=== PATIENT | female | born 1960 | race Caucasian/White ===

== ENCOUNTER → 2016-09-26 | Outpatient (CLI) | payer OTHER ==
[2016-09-26 09:01] LABS: Basophils # (A) 0.1 k/uL (0-0.2); Basophils % (A) 1 %; CH 28.5; CHCM 32.5; Eosinophils # (A) 0.2 k/uL (0-0.7); Eosinophils % (A) 3 %; HCT 38.4 % (34.0-46.0); HDW 2.69; HGB 12.7 gm/dL (11.4-16.0); Luc # (Auto) 0.21; Luc % (Auto) 3; Lymphocytes # (A) 2.1 k/uL (1.0-4.8); Lymphocytes % (A) 28 %; MCH 29.2 pg (25.0-35.0); MCHC 33.1 g/dL (31.0-37.0); MCV 88.3 fL (80.0-100.0); Mean Platelet Volume 6.3; Monocytes # (A) 0.4 k/uL (0-1.0); Monocytes % (A) 5 %; Neutrophils # (A) 4.7 k/uL (1.3-7.7); Neutrophils % (A) 61 %; RBC 4.35 m/uL (3.80-5.40); RDW 13.6 % (11.5-15.5); WBC 7.7 k/uL (3.8-10.6)
[2016-09-26 09:14] LABS: ALT 25 U/L (9-52); AST 15 U/L (14-36); Alkaline Phosphatase 87 U/L (38-126); Anion Gap 10 mmol/L; Blood Urea Nitrogen 21 mg/dL (7-17); Calcium 9.4 mg/dL (8.4-10.2); Carbon Dioxide 30 mmol/L (22-30); Chloride 103 mmol/L (98-107); Cholesterol 203 mg/dL (<200); Glucose 94 mg/dL (74-99); HDL Cholesterol 54 mg/dL (40-60); Non-African American GFR(MDRD) >60 (>60 ml/min/1.73 sqM); Potassium 4.2 mmol/L (3.5-5.1); Sodium 143 mmol/L (137-145); Total Bilirubin 0.5 mg/dL (0.2-1.3); Total Protein 7.5 g/dL (6.3-8.2); Triglycerides 223 mg/dL (<150)
[2016-09-26 10:02] LABS: Hepatitis C Virus IgG Index 0.05
[2016-09-26 10:06] LABS: Hepatitis C Virus IgG Ab Negative (Negative)
[2016-09-26 11:05] LABS: Vitamin B12 357 pg/mL (239-931)
== END | disposition home or self-care (01) ==
LOC: LABWHC1 08:27
PROVIDERS: ATTEND Physician Assistant
DX: Z00.01 Encounter for general adult medical examination with abnormal findings (principal); I10 Essential (primary) hypertension; E78.2 Mixed hyperlipidemia; R53.83 Other fatigue; Z13.29 Encounter for screening for other suspected endocrine disorder
CPT/HCPCS: 36415; 80053; 80061; 82306; 82607; 84439; 84443; 85025; 86803

== ENCOUNTER 2016-10-08 09:01 | Emergency (ER) | payer OTHER ==
[2016-10-08 09:33] LABS: Basophils % (A) 1 %; CH 28.5; CHCM 32.7; Eosinophils # (A) 0.2 k/uL (0-0.7); Eosinophils % (A) 2 %; HCT 40.5 % (34.0-46.0); HDW 2.61; Luc # (Auto) 0.19; Luc % (Auto) 2; Lymphocytes # (A) 1.8 k/uL (1.0-4.8); Lymphocytes % (A) 22 %; MCH 28.3 pg (25.0-35.0); MCHC 32.2 g/dL (31.0-37.0); MCV 87.8 fL (80.0-100.0); Mean Platelet Volume 6.7; Monocytes # (A) 0.5 k/uL (0-1.0); Monocytes % (A) 6 %; Neutrophils # (A) 5.4 k/uL (1.3-7.7); Neutrophils % (A) 67 %; RBC 4.62 m/uL (3.80-5.40); RDW 13.6 % (11.5-15.5); WBC 8.1 k/uL (3.8-10.6)
[2016-10-08 09:45] LABS: ALT 20 U/L (9-52); AST 18 U/L (14-36); Alkaline Phosphatase 88 U/L (38-126); Anion Gap 10 mmol/L; Blood Urea Nitrogen 23 mg/dL (7-17); Calcium 9.4 mg/dL (8.4-10.2); Carbon Dioxide 26 mmol/L (22-30); Chloride 104 mmol/L (98-107); Glucose 105 mg/dL (74-99); Magnesium 1.8 mg/dL (1.6-2.3); Non-African American GFR(MDRD) >60 (>60 ml/min/1.73 sqM); Potassium 4.3 mmol/L (3.5-5.1); Sodium 140 mmol/L (137-145); Total Bilirubin 0.4 mg/dL (0.2-1.3); Total Protein 7.9 g/dL (6.3-8.2)
[2016-10-08 09:47] LABS: Partial Thromboplastin Time 23.4 sec (22.0-30.0); Prothrombin Time 10.3 sec (9.0-12.0)
[2016-10-08 10:00] LABS: Creatine Kinase 40 U/L (30-135)
--- NOTE | 2016-10-08 10:02 | XR ---
EXAMINATION TYPE: XR chest 2V DATE OF EXAM: 10/08/2016 9:55 AM COMPARISON: NONE INDICATION: Chest pain TECHNIQUE: 2 view chest FINDINGS: The heart size is normal. The pulmonary vasculature is normal. The lungs are clear. IMPRESSION: 1. No acute pulmonary process.
--- NOTE | 2016-10-08 10:06 | ED ---
General Adult HPI - General Chief complaint: Chest Pain Stated complaint: Chest Pain Time Seen by Provider: 10/08/16 09:11 Source: patient, EMS, RN notes reviewed, old records reviewed Mode of arrival: EMS Limitations: no limitations - History of Present Illness Initial comments: This is a 55-year-old female ER for evaluation of chest pain. Patient suffers from morbid obesity and high blood pressure. Patient was having some shortness of breath earlier today while getting ready. She states she is mildly over morbidly overweight and because of her weight has difficulty being occasionally but she also had chest pressure at this time. Patient with the [employer] who sent her to the emergency room. At this time patient has no pain. No shortness of breath states symptoms are improved. Patient states she has had heart catheterization before which has been normal. Patient denies fever cough or congestion - Related Data Home Medications Medication Instructions Recorded Confirmed Cyanocobalamin (Vitamin B-12) 5,000 mcg PO DAILY 10/08/16 10/08/16 [Vitamin B12] Lisinopril [Prinivil] 20 mg PO DAILY 10/08/16 10/08/16 Multivitamin [Multivitamins Adult 1 tab PO DAILY 10/08/16 10/08/16 Gummies] Sertraline HCl [Zoloft] 25 mg PO DAILY 10/08/16 10/08/16 Allergies Allergy/AdvReac Type Severity Reaction Status Date / Time ciprofloxacin [From Cipro] Allergy Unknown Verified 10/08/16 09:35 Penicillins Allergy Unknown Verified 10/08/16 09:35 Review of Systems ROS Statement: Those systems with pertinent positive or pertinent negative responses have been documented in the HPI. ROS Other: All systems not noted in ROS Statement are negative. Past Medical History Past Medical History: Hypertension History of Any Multi-Drug Resistant Organisms: None Reported Past Surgical History: Section, Cholecystectomy, Hernia Repair, Hysterectomy Past Psychological History: Anxiety Smoking Status: Never smoker Past Alcohol Use History: None Reported Past Drug Use History: None Reported General Exam Limitations: no limitations General appearance: alert, in no apparent distress, obese Head exam: Present: atraumatic, normocephalic, normal inspection Eye exam: Present: normal appearance, PERRL, EOMI. Absent: scleral icterus, conjunctival injection, periorbital swelling ENT exam: Present: normal exam, mucous membranes moist Neck exam: Present: normal inspection. Absent: tenderness, meningismus, lymphadenopathy Respiratory exam: Present: normal lung sounds bilaterally. Absent: respiratory distress, wheezes, rales, rhonchi, stridor Cardiovascular Exam: Present: regular rate, normal rhythm, normal heart sounds. Absent: systolic murmur, diastolic murmur, rubs, gallop, clicks GI/Abdominal exam: Present: soft, normal bowel sounds. Absent: distended, tenderness, guarding, rebound, rigid Extremities exam: Present: normal inspection, full ROM, normal capillary refill. Absent: tenderness, pedal edema, joint swelling, calf tenderness Back exam: Present: normal inspection Neurological exam: Present: alert, oriented X3, CN II-XII intact Psychiatric exam: Present: normal affect, normal mood Skin exam: Present: warm, dry, intact, normal color. Absent: rash Course Vital Signs 10/08/16 10/08/16 10/08/16 09:03 10:07 11:00 Temperature 99.1 F Pulse Rate 68 81 83 Respiratory 20 16 16 Rate Blood Pressure 145/79 136/68 135/86 O2 Sat by Pulse 98 98 96 Oximetry 10/08/16 10/08/16 10/08/16 12:00 13:25 13:40 Temperature 97.8 F 98 F Pulse Rate 73 95 72 Respiratory 16 18 16 Rate Blood Pressure 125/82 141/76 141/76 O2 Sat by Pulse 95 95 95 Oximetry EKG Findings - EKG Comments: EKG Findings:: EKG shows normal sinus rhythm rate of 73, [place] 182, QRS 76, QTC 414 Medical Decision Making - Medical Decision Making 55 female at ER for evaluation. She coming in for evaluation of chest pain from unexpressed. Patient's EtOH is negative for acute disease, Levaquin was normal. Patient states she has not seen hospital for further evaluation of chest pain, upset the [facility] to ER for evaluation in the first place - Lab Data Result diagrams: 10/08/16 09:20 10/08/16 09:20 Lab Results 10/08/16 10/08/16 10/08/16 Range/Units 09:20 09:20 09:20 WBC 8.1 (3.8-10.6) k/uL RBC 4.62 (3.80-5.40) m/uL Hgb 13.0 (11.4-16.0) gm/dL Hct 40.5 (34.0-46.0) % MCV 87.8 (80.0-100.0) fL MCH 28.3 (25.0-35.0) pg MCHC 32.2 (31.0-37.0) g/dL RDW 13.6 (11.5-15.5) % Plt Count 321 (150-450) k/uL Neutrophils % 67 % Lymphocytes % 22 % Monocytes % 6 % Eosinophils % 2 % Basophils % 1 % Neutrophils # 5.4 (1.3-7.7) k/uL Lymphocytes # 1.8 (1.0-4.8) k/uL Monocytes # 0.5 (0-1.0) k/uL Eosinophils # 0.2 (0-0.7) k/uL Basophils # 0.0 (0-0.2) k/uL PT (9.0-12.0) sec INR (<1.1) APTT (22.0-30.0) sec D-Dimer (<0.60) mg/L FEU Sodium 140 (137-145) mmol/L Potassium 4.3 (3.5-5.1) mmol/L Chloride 104 (98-107) mmol/L Carbon Dioxide 26 (22-30) mmol/L Anion Gap 10 mmol/L BUN 23 H (7-17) mg/dL Creatinine 0.83 (0.52-1.04) mg/dL Est GFR (MDRD) Af Amer >60 (>60 ml/min/1.73 sqM) Est GFR (MDRD) Non-Af >60 (>60 ml/min/1.73 sqM) Glucose 105 H (74-99) mg/dL Calcium 9.4 (8.4-10.2) mg/dL Magnesium 1.8 (1.6-2.3) mg/dL Total Bilirubin 0.4 (0.2-1.3) mg/dL AST 18 (14-36) U/L ALT 20 (9-52) U/L Alkaline Phosphatase 88 (38-126) U/L Total Creatine Kinase 40 (30-135) U/L CK-MB (CK-2) 0.9 (0.0-2.4) ng/mL CK-MB (CK-2) Rel Index 2.3 Troponin I <0.012 (0.000-0.034) ng/mL NT-Pro-B Natriuret Pep pg/mL Total Protein 7.9 (6.3-8.2) g/dL Albumin 3.9 (3.5-5.0) g/dL Lipase 103 (23-300) U/L 10/08/16 10/08/16 10/08/16 Range/Units 09:20 09:20 09:20 WBC (3.8-10.6) k/uL RBC (3.80-5.40) m/uL Hgb (11.4-16.0) gm/dL Hct (34.0-46.0) % MCV (80.0-100.0) fL MCH (25.0-35.0) pg MCHC (31.0-37.0) g/dL RDW (11.5-15.5) % Plt Count (150-450) k/uL Neutrophils % % Lymphocytes % % Monocytes % % Eosinophils % % Basophils % % Neutrophils # (1.3-7.7) k/uL Lymphocytes # (1.0-4.8) k/uL Monocytes # (0-1.0) k/uL Eosinophils # (0-0.7) k/uL Basophils # (0-0.2) k/uL PT 10.3 (9.0-12.0) sec INR 1.0 (<1.1) APTT 23.4 (22.0-30.0) sec D-Dimer 0.55 (<0.60) mg/L FEU Sodium (137-145) mmol/L Potassium (3.5-5.1) mmol/L Chloride (98-107) mmol/L Carbon Dioxide (22-30) mmol/L Anion Gap mmol/L BUN (7-17) mg/dL Creatinine (0.52-1.04) mg/dL Est GFR (MDRD) Af Amer (>60 ml/min/1.73 sqM) Est GFR (MDRD) Non-Af (>60 ml/min/1.73 sqM) Glucose (74-99) mg/dL Calcium (8.4-10.2) mg/dL Magnesium (1.6-2.3) mg/dL Total Bilirubin (0.2-1.3) mg/dL AST (14-36) U/L ALT (9-52) U/L Alkaline Phosphatase (38-126) U/L Total Creatine Kinase (30-135) U/L CK-MB (CK-2) (0.0-2.4) ng/mL CK-MB (CK-2) Rel Index Troponin I (0.000-0.034) ng/mL NT-Pro-B Natriuret Pep 24 pg/mL Total Protein (6.3-8.2) g/dL Albumin (3.5-5.0) g/dL Lipase (23-300) U/L - Radiology Data Radiology results: report reviewed (chest x-ray negative for acute disease, CT negative for PE), image reviewed Disposition Clinical Impression: Chest pain Disposition: HOME SELF-CARE Condition: Good Instructions: Chest Pain (ED) Referrals: Antwan Pineda III, MD [Primary Care Provider] - 1-2 days
[2016-10-08 10:12] LABS: Creatine Kinase MB 0.9 ng/mL (0.0-2.4); Troponin I <0.012 ng/mL (0.000-0.034)
[2016-10-08] MEDS ORDERED: RX INFO: IV CONTRAST WAS GIVEN 1 EACH MISC MISCELLANE PRN (10:47)
--- NOTE | 2016-10-08 12:33 | CT ---
EXAMINATION TYPE: CT angio chest DATE OF EXAM: 10/08/2016 11:53 AM COMPARISON: Radiograph same day HISTORY: 55-year-old female SOB, chest pressure TECHNIQUE: Contiguous axial scanning of the chest performed with IV Contrast, patient injected with 6 6 mL of Omnipaque 350. Coronal/sagittal MIP reconstructions performed. CT DLP: 593.9 mGycm Automated exposure control for dose reduction was used. FINDINGS: The heart is normal size. Mild pericardial fluid is noted within the recesses. Aorta is normal caliber with conventional arch vessel branching anatomy. There is some respiratory motion at the infrahilar regions causing heterogeneity of the opacified pul monary vessels, for example, a segmental right lower lobe branch axial image 66 in segment also subse gmental left lower lobe branch, axial image 68. Within this limitation, no definite pulmonary embolus is seen. No thoracic lymphadenopathy by CT size criteria. Evaluation of the lungs shows some strandy atelectasis at the left apex, anterior left midlung, and i nferior lingula. No consolidation or pleural effusion. Mild circumferential wall thickening of the distal esophagus. Bones: Endplate spondylosis mid to lower thoracic spine. No osseous destructive process. IMPRESSION: 1. RESPIRATORY MOTION IN THE INFRAHILAR REGIONS CAUSING SOME LIMITATIONS OF THE SEGMENTAL LOWER LOBE BRANCHES. NO DEFINITE PULMONARY EMBOLISM ALLOWING FOR THIS LIMITATION. 2. NO ACUTE PULMONARY PROCESS. 3. MILD CIRCUMFERENTIAL WALL THICKENING OF THE DISTAL ESOPHAGUS COULD REPRESENT ESOPHAGITIS. CLINICAL LY CORRELATE.
[2016-10-08 13:26] VITALS: BP 141/76
[2016-10-08 13:41] VITALS: PULSE 72; RESP 16; TEMP 98
== END 2016-10-08 13:41 ==
LOC: EC 09:01
DX: R07.9 Chest pain, unspecified (principal); R06.02 Shortness of breath; E66.01 Morbid (severe) obesity due to excess calories; I10 Essential (primary) hypertension; F41.9 Anxiety disorder, unspecified; Z79.899 Other long term (current) drug therapy; Z88.0 Allergy status to penicillin; Z88.1 Allergy status to other antibiotic agents; Z95.818 Presence of other cardiac implants and grafts; Z68.43 Body mass index [BMI] 50.0-59.9, adult
CPT/HCPCS: 36415; 93005; 85379; 83880; 80053; 82550; 82553; 83690; 83735; 84484; 85025; 85610; 85730; 71020; 71275; 99285; Q9967

== ENCOUNTER → 2016-11-13 | Outpatient (CLI) | payer OTHER ==
--- NOTE | 2016-11-13 09:51 | MM ---
Reason for exam: screening (asymptomatic). Last mammogram was performed 1 year and 4 months ago. History: Patient is postmenopausal. Family history of breast cancer in maternal aunt at age 50. Took hormonal contraceptives for 2 years beginning at age 21. Physical Findings: A clinical breast exam by your physician is recommended on an annual basis and results should be correlated with mammographic findings. MG 3D Screening Mammo W/Cad Bilateral CC and MLO view(s) were taken. Prior study comparison: July 23, 2015, bilateral MG 3d screening mammo w/cad. June 12, 2011, bilateral digital screening mammo w/CAD. The breast tissue is almost entirely fat. There is chronic nodularity bilaterally. No significant changes when compared with prior studies. ASSESSMENT: Benign, BI-RAD 2 RECOMMENDATION: Routine screening mammogram of both breasts in 1 year.
== END | disposition home or self-care (01) ==
LOC: RADMAMWWP 07:15
PROVIDERS: ATTEND Obstetrics & Gynecology
DX: Z12.31 Encounter for screening mammogram for malignant neoplasm of breast (principal); Z80.3 Family history of malignant neoplasm of breast
CPT/HCPCS: 77063; G0202

== ENCOUNTER → 2017-08-12 | Outpatient (CLI) | payer OTHER ==
--- NOTE | 2017-08-12 10:34 | BD ---
EXAMINATION TYPE: MG DEXA axial skeleton. DATE OF EXAM: 08/12/2017 COMPARISON: Prior bone scan report June 12, 2002. CLINICAL HISTORY: Other disorder of bone per order. Height: 66 Weight: 254.2 FRAX RISK QUESTIONS: Alcohol (3 or more units per day): no Family History (Parent hip fracture): yes Glucocorticoids (More than 3mos): no (Ex: prednisone, prednisolone, methylprednisolone, dexamethasone, and hydrocortisone). History of Fracture in Adulthood: no Secondary Osteoporosis: 1. Type 1 Diabetes: no 2. Hyperthyroidism: no 3. Menopause before 45: no 4. Malnutrition: no 5. Chronic liver disease: no Rheumatoid Arthritis: no Current Tobacco Use: no RISK FACTORS HISTORY OF: Surgery to Spine/Hip(right/left)/Wrist (right/left): no Family History of Osteoporosis: no Active: yes Diet low in dairy products/other sources of calcium: no Postmenopausal woman: hysterectomy after age 47 Lost more than 2 inches in height since high school: no Frequent falls: no Adrenal Insufficiency: no MEDICATIONS: lisinopril, generic of zoloft, stomach meds for ulcers Additional History: EXAM MEASUREMENTS: Bone mineral densitometry was performed using the [email or web address] System. Bone mineral density as measured about the Lumbar spine is: ----- L1-L4(G/cm2): 1.264 T Score Values are as follows: ----- L2: 0.7 ----- L3: 0.9 ----- L4: 1.0 ----- L1-L4: 0.7 Bone mineral density has: increased 1.0 % since study of: 06.12.2002 Bone mineral density about the R hip (g/cm2): 0.894 Bone mineral density about the L hip (g/cm2): 0.984 T Score values are as follows: -----R Neck: -1.0 -----L Neck: -0.4 -----R Total: -0.6 -----L Total: -0.3 Bone mineral density has: increased 1.3 % since study of: 06.12.2002 IMPRESSION: Normal (Values between +1 and -1 indicate normal bone mass). Consider repeating this study in 5 year s or sooner if there is some new clinical indication. NOTE: T-SCORE=SD OF THE YOUNG ADULT MEAN.
== END | disposition home or self-care (01) ==
LOC: RADBDWWP 07:24
PROVIDERS: ATTEND Obstetrics & Gynecology
DX: M89.9 Disorder of bone, unspecified (principal)
CPT/HCPCS: 77080

== ENCOUNTER → 2017-11-30 | Outpatient (CLI) | payer OTHER ==
--- NOTE | 2017-12-02 10:33 | MM ---
Reason for exam: screening (asymptomatic). Last mammogram was performed 1 year and 1 month ago. History: Patient is postmenopausal. Family history of breast cancer in maternal aunt at age 50. Took hormonal contraceptives for 2 years beginning at age 21. Physical Findings: A clinical breast exam by your physician is recommended on an annual basis and results should be correlated with mammographic findings. MG 3D Screening Mammo W/Cad Bilateral CC and MLO view(s) were taken. Prior study comparison: November 13, 2016, bilateral MG 3d screening mammo w/cad. July 23, 2015, bilateral MG 3d screening mammo w/cad. There are scattered fibroglandular densities. No significant changes when compared with prior studies. ASSESSMENT: Negative, BI-RAD 1 RECOMMENDATION: Routine screening mammogram of both breasts in 1 year.
== END | disposition home or self-care (01) ==
LOC: RADMAMWWP 12:56
PROVIDERS: ATTEND Obstetrics & Gynecology
DX: Z12.31 Encounter for screening mammogram for malignant neoplasm of breast (principal)
CPT/HCPCS: 77063; 77067

== ENCOUNTER 2017-12-26 05:42 | Emergency (ER) | payer OTHER ==
[2017-12-26 06:23] LABS: Basophils % (A) 0 %; Eosinophils # (A) 0.2 k/uL (0-0.7); Eosinophils % (A) 2 %; HCT 39.9 % (34.0-46.0); Lymphocytes # (A) 2.1 k/uL (1.0-4.8); Lymphocytes % (A) 22 %; MCH 28.7 pg (25.0-35.0); MCHC 32.7 g/dL (31.0-37.0); MCV 87.9 fL (80.0-100.0); Monocytes # (A) 0.4 k/uL (0-1.0); Monocytes % (A) 5 %; Neutrophils # (A) 6.7 k/uL (1.3-7.7); Neutrophils % (A) 70 %; Platelet Count 373 k/uL (150-450); RBC 4.54 m/uL (3.80-5.40); RDW 14.4 % (11.5-15.5); WBC 9.7 k/uL (3.8-10.6)
[2017-12-26 06:45] LABS: Albumin 4.2 g/dL (3.5-5.0); Calcium 9.6 mg/dL (8.4-10.2); Potassium 3.8 mmol/L (3.5-5.1); Total Bilirubin 0.5 mg/dL (0.2-1.3); Total Protein 7.8 g/dL (6.3-8.2)
--- NOTE | 2017-12-26 06:50 | XR ---
EXAMINATION TYPE: XR chest 1V portable DATE OF EXAM: 12/26/2017 COMPARISON: 10/08/2016 HISTORY: Syncope TECHNIQUE: Single frontal view of the chest is obtained. FINDINGS: Heart and mediastinum are normal. Lungs are clear. Diaphragm is normal. There are chest le ads. Bony thorax is intact. IMPRESSION: Normal chest. No change.
[2017-12-26 06:52] LABS: Creatine Kinase 27 U/L (30-135)
[2017-12-26 06:55] LABS: INR 1.1 (<1.2); Partial Thromboplastin Time 22.9 sec (22.0-30.0); Prothrombin Time 10.3 sec (9.0-12.0)
[2017-12-26 07:04] VITALS: TEMP 98.2
[2017-12-26 07:05] LABS: Creatine Kinase MB 0.8 ng/mL (0.0-2.4); Troponin I <0.012 ng/mL (0.000-0.034)
--- NOTE | 2017-12-26 08:02 | CT ---
EXAMINATION TYPE: CT brain wo con DATE OF EXAM: 12/26/2017 COMPARISON: NONE HISTORY: Syncope with head injury CT DLP: 1005.80 mGycm Automated exposure control for dose reduction was used. FINDINGS: Central structures are midline. There is no evidence of hydrocephalus. No acute focal lesion, mass ef fect or midline shift is seen. I do not see evidence of intracranial blood. Visualized portions of the paranasal sinuses and mastoids are clear. The bony calvarium is intact. IMPRESSION: NORMAL CT SCAN OF THE BRAIN.
--- NOTE | 2017-12-26 08:14 | ED ---
Syncope HPI - General Chief Complaint: Fall Stated Complaint: Syncope, Head Injury Time Seen by Provider: 12/26/17 05:54 Source: patient Mode of arrival: wheelchair Limitations: no limitations - History of Present Illness Initial Comments: This patient is a 57-year-old woman who presents to be evaluated after she had a syncopal episode this morning. The patient states that she had been experiencing couple of episodes of diarrhea. She had gone to use the bathroom and then had a very intense, sharp, right-sided abdominal pain. This came on, she felt like she was getting warm, and lightheaded, then remembers waking up on the floor next to the commode. She felt some left facial and brow pain and realized that she had struck her face. She also had a trickle of blood from her nose. The patient states that the abdominal pain has completely resolved. She did not have any chest pain or palpitations or dyspnea. MD Complaint: loss of consciousness, collapsed Onset/Timin -: hour(s) Prodromal Symptoms: lightheaded -: second(s) Witnessed: yes - by bystander Injuries Sustained Associated with Event: Face, Mouth/Tongue Current Symptoms: back to baseline Context: other Treatments Prior to Arrival: none - Related Data Home Medications Medication Instructions Recorded Confirmed Cyanocobalamin (Vitamin B-12) 5,000 mcg PO DAILY 10/08/16 10/08/16 [Vitamin B12] Lisinopril [Prinivil] 20 mg PO DAILY 10/08/16 10/08/16 Multivitamin [Multivitamins Adult 1 tab PO DAILY 10/08/16 10/08/16 Gummies] Sertraline HCl [Zoloft] 25 mg PO DAILY 10/08/16 10/08/16 Allergies Allergy/AdvReac Type Severity Reaction Status Date / Time ciprofloxacin [From Cipro] Allergy Unknown Verified 12/26/17 05:51 Penicillins Allergy Unknown Verified 12/26/17 05:51 Review of Systems ROS Statement: Those systems with pertinent positive or pertinent negative responses have been documented in the HPI. ROS Other: All systems not noted in ROS Statement are negative. Constitutional: Denies: fever, chills Respiratory: Denies: cough, dyspnea Cardiovascular: Reports: syncope. Denies: chest pain, palpitations, orthopnea, edema Gastrointestinal: Reports: diarrhea. Denies: abdominal pain, vomiting, melena, hematochezia Genitourinary: Denies: dysuria Musculoskeletal: Denies: back pain Skin: Denies: rash Neurological: Denies: headache, weakness, numbness, paresthesias Hematological/Lymphatic: Denies: easy bleeding Past Medical History Past Medical History: Hypertension History of Any Multi-Drug Resistant Organisms: None Reported Past Surgical History: Bariatric Surgery, Section, Cholecystectomy, Hernia Repair, Hysterectomy Additional Past Surgical History / Comment(s): gastric bypass Past Psychological History: Anxiety Smoking Status: Never smoker Past Alcohol Use History: None Reported Past Drug Use History: None Reported General Exam Limitations: no limitations General appearance: alert, in no apparent distress Head exam: Present: normocephalic, other (There is a contusion to the left brow and left infraorbital area. No bony tenderness or deformity.) Eye exam: Present: normal appearance, PERRL, EOMI. Absent: scleral icterus, conjunctival injection ENT exam: Present: mucous membranes moist, other (There is a small tear in the frenulum of the upper lip.) Neck exam: Present: normal inspection, full ROM, other (No bruit). Absent: tenderness, meningismus Respiratory exam: Present: normal lung sounds bilaterally. Absent: respiratory distress, wheezes, rales, rhonchi, stridor Cardiovascular Exam: Present: regular rate, normal rhythm, normal heart sounds. Absent: systolic murmur, diastolic murmur, rubs, gallop GI/Abdominal exam: Present: soft, normal bowel sounds. Absent: distended, tenderness, guarding, rebound, rigid, mass Extremities exam: Present: normal inspection, normal capillary refill. Absent: pedal edema, calf tenderness Back exam: Present: normal inspection. Absent: CVA tenderness (R), CVA tenderness (L) Neurological exam: Present: alert, oriented X3, CN II-XII intact, normal gait. Absent: motor sensory deficit Skin exam: Present: warm, dry, intact, normal color. Absent: rash Course Vital Signs 12/26/17 12/26/17 05:46 07:00 Temperature 97.8 F 98.2 F Pulse Rate 68 62 Respiratory 18 16 Rate Blood Pressure 109/71 109/61 O2 Sat by Pulse 100 97 Oximetry EKG Findings - EKG Results: EKG: interpreted by ERMD, sinus rhythm (Rate approximately 68 bpm), normal axis , normal QRS, normal ST/T, no acute changes Medical Decision Making - Lab Data Result diagrams: 12/26/17 06:11 12/26/17 06:11 Lab Results 12/26/17 12/26/17 12/26/17 Range/Units 06:11 06:11 06:11 WBC 9.7 (3.8-10.6) k/uL RBC 4.54 (3.80-5.40) m/uL Hgb 13.0 (11.4-16.0) gm/dL Hct 39.9 (34.0-46.0) % MCV 87.9 (80.0-100.0) fL MCH 28.7 (25.0-35.0) pg MCHC 32.7 (31.0-37.0) g/dL RDW 14.4 (11.5-15.5) % Plt Count 373 (150-450) k/uL Neutrophils % 70 % Lymphocytes % 22 % Monocytes % 5 % Eosinophils % 2 % Basophils % 0 % Neutrophils # 6.7 (1.3-7.7) k/uL Lymphocytes # 2.1 (1.0-4.8) k/uL Monocytes # 0.4 (0-1.0) k/uL Eosinophils # 0.2 (0-0.7) k/uL Basophils # 0.0 (0-0.2) k/uL PT (9.0-12.0) sec INR (<1.2) APTT (22.0-30.0) sec Sodium 142 (137-145) mmol/L Potassium 3.8 (3.5-5.1) mmol/L Chloride 108 H (98-107) mmol/L Carbon Dioxide 26 (22-30) mmol/L Anion Gap 8 mmol/L BUN 14 (7-17) mg/dL Creatinine 0.87 (0.52-1.04) mg/dL Est GFR (CKD-EPI)AfAm 87 (>60 ml/min/1.73 sqM) Est GFR (CKD-EPI)NonAf 75 (>60 ml/min/1.73 sqM) Glucose 97 (74-99) mg/dL Calcium 9.6 (8.4-10.2) mg/dL Total Bilirubin 0.5 (0.2-1.3) mg/dL AST 100 H (14-36) U/L ALT 49 (9-52) U/L Alkaline Phosphatase 108 (38-126) U/L Total Creatine Kinase 27 L (30-135) U/L CK-MB (CK-2) 0.8 (0.0-2.4) ng/mL CK-MB (CK-2) Rel Index 3.0 Troponin I <0.012 (0.000-0.034) ng/mL Total Protein 7.8 (6.3-8.2) g/dL Albumin 4.2 (3.5-5.0) g/dL 12/26/17 Range/Units 06:11 WBC (3.8-10.6) k/uL RBC (3.80-5.40) m/uL Hgb (11.4-16.0) gm/dL Hct (34.0-46.0) % MCV (80.0-100.0) fL MCH (25.0-35.0) pg MCHC (31.0-37.0) g/dL RDW (11.5-15.5) % Plt Count (150-450) k/uL Neutrophils % % Lymphocytes % % Monocytes % % Eosinophils % % Basophils % % Neutrophils # (1.3-7.7) k/uL Lymphocytes # (1.0-4.8) k/uL Monocytes # (0-1.0) k/uL Eosinophils # (0-0.7) k/uL Basophils # (0-0.2) k/uL PT 10.3 (9.0-12.0) sec INR 1.1 (<1.2) APTT 22.9 (22.0-30.0) sec Sodium (137-145) mmol/L Potassium (3.5-5.1) mmol/L Chloride (98-107) mmol/L Carbon Dioxide (22-30) mmol/L Anion Gap mmol/L BUN (7-17) mg/dL Creatinine (0.52-1.04) mg/dL Est GFR (CKD-EPI)AfAm (>60 ml/min/1.73 sqM) Est GFR (CKD-EPI)NonAf (>60 ml/min/1.73 sqM) Glucose (74-99) mg/dL Calcium (8.4-10.2) mg/dL Total Bilirubin (0.2-1.3) mg/dL AST (14-36) U/L ALT (9-52) U/L Alkaline Phosphatase (38-126) U/L Total Creatine Kinase (30-135) U/L CK-MB (CK-2) (0.0-2.4) ng/mL CK-MB (CK-2) Rel Index Troponin I (0.000-0.034) ng/mL Total Protein (6.3-8.2) g/dL Albumin (3.5-5.0) g/dL Disposition Clinical Impression: Syncope, Fall, Facial contusion Disposition: HOME SELF-CARE Condition: Good Instructions: Syncope (ED) Is patient prescribed a controlled substance at d/c from ED?: No Referrals: Antwan Pineda III, MD [Primary Care Provider] - 1-2 days
[2017-12-26 08:29] VITALS: BP 128/76; PULSE 74; RESP 18
== END 2017-12-26 08:34 | disposition home or self-care (01) ==
LOC: EC 05:42
DX: S00.12XA Contusion of left eyelid and periocular area, initial encounter (principal); R55 Syncope and collapse; I10 Essential (primary) hypertension; F41.9 Anxiety disorder, unspecified; Z79.899 Other long term (current) drug therapy; Z88.1 Allergy status to other antibiotic agents; Z88.0 Allergy status to penicillin; W19.XXXA Unspecified fall, initial encounter; Y92.002 Bathroom of unspecified non-institutional (private) residence as the place of occurrence of the external cause
CPT/HCPCS: 36415; 70450; 71045; 80053; 82550; 82553; 84484; 85025; 85610; 85730; 93005; 99284

== ENCOUNTER → 2018-04-16 | Outpatient (CLI) | payer OTHER ==
[2018-04-16 12:08] LABS: HCT 38.3 % (34.0-46.0); HGB 12.2 gm/dL (11.4-16.0); MCH 29.2 pg (25.0-35.0); MCHC 31.9 g/dL (31.0-37.0); MCV 91.5 fL (80.0-100.0); Mean Platelet Volume 7.1; Platelet Count 357 k/uL (150-450); RBC 4.19 m/uL (3.80-5.40); RDW 13.8 % (11.5-15.5); WBC 7.2 k/uL (3.8-10.6)
[2018-04-16 16:33] LABS: Iron Saturation 12.66 (12.00-45.00)
[2018-04-19 02:03] LABS: Methylmalonic Acid 0.39 umol/L (<0.40)
== END | disposition home or self-care (01) ==
LOC: LABWHC1 11:10
PROVIDERS: ATTEND Nurse Practitioner Adult Health
DX: D64.9 Anemia, unspecified (principal); R53.83 Other fatigue; Z98.84 Bariatric surgery status
CPT/HCPCS: 36415; 82040; 82306; 82525; 82607; 82728; 82747; 83540; 83550; 83921; 84134; 84425; 84630; 85027

== ENCOUNTER → 2018-04-21 | Outpatient (CLI) | payer OTHER ==
--- NOTE | 2018-04-21 11:09 | P.HPBAR ---
Bariatric H&P - History & Physicial H&P Date: 04/21/18 History & Physicial: Visit/CC: Patient initial contact: Initial weight: Initial weight in pounds: Height: Initial BMI: Last weight: Current weight: Current weight in pounds: Current BMI: [place] body weight (based on NIH guidelines): Excess body weight loss: The patient is a 57 year-old F who presents for Bariatric Assessment. HPI: She had a gastric bypass from [address] Domingo Spicer who retired. She was seeing Dr. Steve and now wants her care locally. Her highest weight 350 pounds. She lost 160 pounds. Lowest weight was 189 pounds. She reports having abdominal pain at the left upper quadrant and had passed out sitting on the toilet and hit her head with trauma. She has family history of morbid obesity and weight loss surgery. She had right upper quadrant pain. Her gallbladder is gone. She reports occassional vomiting and dysphagia with the exception of eating too fast. ABDOMEN: Soft and nontender. Excess pannus. ASSESSMENT: 1. Morbid obesity. PLAN: 1. Review of studies advised. 2. She followed up with Dr. Steve in December 2017. 3. Labs reviewed. 4. Recommend EGD for history of gastric ulcers 5. Colonoscopy for colon cancer history in her mother. Past Medical History Past Medical History: Hypertension History of Any Multi-Drug Resistant Organisms: None Reported Past Surgical History: Bariatric Surgery, Section, Cholecystectomy, Hernia Repair, Hysterectomy Additional Past Surgical History / Comment(s): gastric bypass Past Psychological History: Anxiety Smoking Status: Never smoker Past Alcohol Use History: None Reported Past Drug Use History: None Reported Bariatric Checklist Checklist: Plan: Checklist: EGD: 1. Hiatal hernia: 2. H. Pylori: HgbA1c: Vitamin D: Smoking: Never smoker Primary care physician referral: Psychiatry clearance: Cardiology clearance: Sleep study: Diet journal: VTE risk score: VTE risk level: Rehab needs at discharge:
[2018-04-21 12:19] VITALS: PULSE 70; TEMP 97.7; BMI 31.1
== END | disposition home or self-care (01) ==
LOC: BARWHC3 10:18
PROVIDERS: ATTEND Surgery Plastic and Reconstructive Surgery
DX: E66.01 Morbid (severe) obesity due to excess calories (principal); R10.11 Right upper quadrant pain; R10.12 Left upper quadrant pain; R11.10 Vomiting, unspecified; R13.10 Dysphagia, unspecified; F41.9 Anxiety disorder, unspecified; Z98.84 Bariatric surgery status; Z90.49 Acquired absence of other specified parts of digestive tract; Z90.710 Acquired absence of both cervix and uterus; Z98.890 Other specified postprocedural states; Z87.828 Personal history of other (healed) physical injury and trauma; Z83.49 Family history of other endocrine, nutritional and metabolic diseases; Z68.31 Body mass index [BMI] 31.0-31.9, adult
CPT/HCPCS: 99211

== ENCOUNTER → 2018-04-26 | Outpatient (CLI) | payer OTHER ==
[2018-04-27 05:46] LABS: Magnesium 1.7 mg/dL (1.5-2.4); Phosphorus 3.6 mg/dL (2.4-5.1)
[2018-04-27 06:18] LABS: Parathyroid Hormone Intact 51.1 pg/mL (14.0-72.0)
[2018-04-27 07:35] LABS: Hemoglobin A1C 5.1 % (4.0-6.0)
[2018-04-27 10:12] LABS: Albumin 3.9 g/dL (3.80-4.90); Albumin/Globulin Ratio 1.39 (1.20-2.10); Anion Gap 10.7 mmol/L (4.00-12.00); Calcium 9.3 mg/dL (8.7-10.3); Carbon Dioxide 23.3 mmol/L (21.6-31.8); Globulin 2.8 g/dL (2.1-3.7); LDL Cholesterol,Calculated 46.6 mg/dL (0.0-131.0); Potassium 4.2 mmol/L (3.5-5.5); Total Bilirubin 0.3 mg/dL (0.3-1.2); Total Protein 6.7 g/dL (6.2-8.2); VLDL Calculation 18.4 mg/dL (5.00-40.00)
[2018-04-28 08:00] LABS: Vitamin A 50 ug/dL (38-106)
== END | disposition home or self-care (01) ==
LOC: LABWHC1 17:07
PROVIDERS: ATTEND Surgery Plastic and Reconstructive Surgery
DX: E44.0 Moderate protein-calorie malnutrition (principal); E66.01 Morbid (severe) obesity due to excess calories; T56.894A Toxic effect of other metals, undetermined, initial encounter; E89.1 Postprocedural hypoinsulinemia; E55.9 Vitamin D deficiency, unspecified
CPT/HCPCS: 36415; 80053; 80061; 82306; 83036; 83735; 83970; 84100; 84255; 84443; 84590

== ENCOUNTER → 2018-05-06 | Outpatient (CLI) | payer OTHER ==
--- NOTE | 2018-05-06 15:55 | CT ---
EXAMINATION TYPE: CT abdomen pelvis w con DATE OF EXAM: 05/06/2018 HISTORY: Abdominal pain CT DLP: 1514mGycm Automated Exposure Control for Dose Reduction was Utilized. CONTRAST: CT scan of the abdomen and pelvis is performed with IV Contrast, patient injected with 100 mL of Isov ue 300. COMPARISON: None. FINDINGS: LUNG BASES: No significant abnormality is appreciated. LIVER/GB: Gallbladder is surgically absent. Area of hypoattenuation along the fissure for the falcifo rm ligament most commonly relates to hepatic steatosis. PANCREAS: No significant abnormality is seen. SPLEEN: No significant abnormality is seen. ADRENALS: No significant abnormality is seen. KIDNEYS: There is a 2.1 cm exophytic left upper pole renal cyst. Kidneys enhance symmetrically.. BOWEL: Postsurgical changes are noted of prior partial gastrectomy. There are no small bowel loops wi thin the right mid abdomen and only few centralized small bowel loops with the majority of small ann l loops in the left mid abdomen as well as leftward deviation of mesenteric vasculature such as on se oneil 3 image 36. Although there is no dilatation of bowel tiny 3 suspicion for internal hernia withou t obstruction. LYMPH NODES: No greater than 1cm abdominal or pelvic lymph nodes are appreciated. OSSEOUS STRUCTURES: Minimal multilevel degenerative changes of the spine are seen. OTHER: At the level umbilicus centrally and left paracentrally there is a fat-containing circumscribe d 2.9 x 4.3 cm region with surrounding inflammatory fat stranding that is very mild. Solitary surgica l clip is seen inferior to this on series 3 image 64 within the mesentery. IMPRESSION: 1. Paucity of small bowel in the right paracentral abdomen and no small bowel loops within the right lateral abdomen with clustered small bowel loops in the left mid abdomen raising the possibility of i nternal hernia although there is no dilation of this time correlation with physical exam is recommend ed. 2. Fat attenuated area within the left paracentral abdomen at the level umbilicus could represent fat necrosis or omental infarct. A Yellow level critical message alert has been initiated for Concha Ruff MD via the [employer] Critical Results System on 05/06/2018 3:52 PM. This message alert has been sent to Concha Dave MD via the preferences provided by the clinician for the receipt of Radiology Critical Find ings. Message ID [id number].
== END ==
LOC: RADCTMAIN 13:10
PROVIDERS: ATTEND Surgery Plastic and Reconstructive Surgery
DX: R93.3 Abnormal findings on diagnostic imaging of other parts of digestive tract (principal)
CPT/HCPCS: 74177; Q9967

== ENCOUNTER 2018-08-19 08:10 | Day surgery (SDC) | payer OTHER ==
[2018-08-16 08:37] VITALS: BMI 29.8
[~2018-08-19 08:10] MED LIST: LACTATED RINGERS 1,000 ML IV SCH
--- NOTE | 2018-08-19 08:44 | P.GSHP ---
History of Present Illness H&P Date: 08/19/18 CHIEF COMPLAINT: GERD and colon screen HISTORY OF PRESENT ILLNESS: The patient is a 57-year-old female who presents with gastroesophageal reflux disease and need for colon screen. Upper and lower endoscopy were offered for further evaluation and management. PAST MEDICAL HISTORY: Please see list. PAST SURGICAL HISTORY: Please see list. MEDICATIONS: Please see list. ALLERGIES: Please see list. SOCIAL HISTORY: No illicit drug use FAMILY HISTORY: No reports of Crohn disease or ulcerative colitis. REVIEW OF ORGAN SYSTEMS: CONSTITUTIONAL: No reports of fevers or chills. GI: Denies any blood in stools or constipation. PHYSICAL EXAM: VITAL SIGNS: Stable GENERAL: Well-developed pleasant in no acute distress. HEENT: No scleral icterus. Extraocular movements grossly intact. Moist buccal mucosa. NECK: Supple without lymphadenopathy. CHEST: Unlabored respirations. Equal bilateral excursions. CARDIOVASCULAR: Regular rate and rhythm. Distal 2+ pulses. ABDOMEN: Soft, nondistended. MUSCULOSKELETAL: No clubbing, cyanosis, or edema. ASSESSMENT: 1. Gastroesophageal reflux disease 2. Colon screen. PLAN: 1. Recommend proceeding with an upper and lower endoscopy Past Medical History Past Medical History: Hypertension, Sleep Apnea/CPAP/BIPAP Additional Past Medical History / Comment(s): STATES HTN RESOLVED WITH WT LOSS (165 #), NEEDS NEW C-PAP MACHINE AND HAS NOT BEEN RETESTED FOR SLEEP APNEA., ST OMACH ULCER. History of Any Multi-Drug Resistant Organisms: None Reported Past Surgical History: Bariatric Surgery, Section, Cholecystectomy, Hernia Repair, Hysterectomy Additional Past Surgical History / Comment(s): gastric bypass (2017). PLASTIC SURGERY X5 FOR RIGHT LEG INJURY Past Anesthesia/Blood Transfusion Reactions: Postoperative Nausea & Vomiting (PONV) Additional Past Anesthesia/Blood Transfusion Reaction / Comment(s): STATES NAUSEA AND ANXIETY. Smoking Status: Never smoker - Past Family History Mother Family Medical History: Cancer Additional Family Medical History / Comment(s): colon Medications and Allergies Home Medications Medication Instructions Recorded Confirmed Type Cyanocobalamin (Vitamin B-12) 5,000 mcg PO DAILY 10/08/16 08/19/18 History [Vitamin B12] Multivitamin [Multivitamins Adult 2 tab PO DAILY 10/08/16 08/19/18 History Gummies] Cholecalciferol [Vitamin D3] 10,000 unit PO DAILY 07/15/18 08/19/18 History Omeprazole 20 mg PO DAILY PRN 07/15/18 08/19/18 History Allergies Allergy/AdvReac Type Severity Reaction Status Date / Time ciprofloxacin [From Cipro] Allergy Unknown Verified 08/16/18 08:33 NSAIDS (Non-Steroidal Allergy can not Verified 08/16/18 08:33 Anti-Inflamma take due to gastric bypass surgery Penicillins Allergy Unknown Verified 08/16/18 08:33
[2018-08-19 08:45] VITALS: RESP 18; TEMP 98.2
[2018-08-19] MEDS ORDERED: PROPOFOL 10 MG/ML 20 ML VIAL IV ONE (09:12)
[2018-08-19 09:56] VITALS: BP 109/67; PULSE 63
--- NOTE | 2018-08-19 10:03 | P.PCN ---
Date of Procedure: 08/19/18 Description of Procedure: PREOPERATIVE DIAGNOSIS: History of gastric ulcer POSTOPERATIVE DIAGNOSIS: History of gastric ulcer Gastrojejunal stricture with chronic ulcer without perforation OPERATION: Esophagogastrojejunoscopy with balloon dilatation from 9 to 11 mm. SURGEON: Concha Ruff MD ANESTHESIA: MAC. INDICATIONS: The patient is a 57-year-old female who presents with a history of gastric ulcers Benefits and risks of the procedure were described. Informed consent was obtained. DESCRIPTION: The patient was brought into the endoscopy suite and laid in the left lateral decubitus position. After a timeout was confirmed, the procedure was initiated. An Olympus gastroscope was passed along the posterior oropharynx down to the distal esophagus where the squamocolumnar junction was unremarkable. The gastric pouch was entered. A gastrojejunal stricture of 9 mm was found as the adult ga stroscope was 9.5 mm in size. A [employer] balloon dilator was placed through the scope. Final insufflation up to 20 mm was performed with a total of 2 minutes. The scope was advanced up to 60 cm from the incisors into the Maya limb. The mucosa of the gastrojejunal anastomosis was intact. However chronic gastrojejunal marginal ulcer was encountered. No full-thickness injury was encountered. The GI tract was desufflated. The patient tolerated the procedure well. FINDINGS: Stricture of approximately 9 mm encountered. Chronic gastrojejunal ulceration encountered. Successful balloon dilatation to 11 mm. RECOMMENDATIONS: Start combined therapy of Carafate and omeprazole of at least 4 weeks.
--- NOTE | 2018-08-19 10:04 | P.PCN ---
Date of Procedure: 08/19/18 Description of Procedure: PREOPERATIVE DIAGNOSIS: Personal history of colon polyps Colonoscopy surveillance POSTOPERATIVE DIAGNOSIS: Personal history of colon polyps Colonoscopy surveillance Diverticulosis, scattered. OPERATION: Colonoscopy to the ileocecal valve and appendiceal orifice. SURGEON: Concha Ruff MD. ANESTHESIA: MAC. INDICATIONS: The patient is a 57-year-old female who presents for colonoscopy screening. Benefits and risks were described and informed consent was obtained. DESCRIPTION OF PROCEDURE: The patient had undergone Gatorade, MiraLAX and Dulcolax prep. He had been brought into the operating room and laid in the left lateral decubitus position. After adequate intravenous sedation, the rectum was examined with 2% lidocaine jelly. No external hemorrhoids were encountered. The rectal tone was within normal limits. No lesions were palpated in the rectal vault. An Olympus colonoscope was advanced until the ileocecal valve and appendiceal orifice were clearly viewed. The prep was excellent with clear visualization of the mucosal folds. The scope was removed with visualization of each mucosal fold. Scattered diverticulosis was encountered. No colonic polyps were found. No evidence of focal colitis was found. Retroflexion of the scope demonstrated grade 1 internal hemorrhoids without active bleeding or inflammation. The colon was desufflated. The patient had tolerated the procedure well. Withdrawal time was over 6 minutes. FINDINGS: Internal hemorrhoids, grade 1 No external prolapsed hemorrhoids. No arteriovenous malformations. No adenomatous polyps. No focal colitis. RECOMMENDATIONS: Lower endoscopy in 5 years, 2023 Plan - Discharge Summary Discharge Rx Participant: Yes New Discharge Prescriptions: New Sucralfate [Carafate] 1 gm PO BID #30 tablet Omeprazole 40 mg PO DAILY #30 capsule.dr [employer] Action Multivitamin [Multivitamins Adult Gummies] 2 tab PO DAILY Cyanocobalamin (Vitamin B-12) [Vitamin B12] 5,000 mcg PO DAILY Cholecalciferol [Vitamin D3] 10,000 unit PO DAILY Omeprazole 20 mg PO DAILY PRN PRN Reason: stomach upset Discharge Medication List Cyanocobalamin (Vitamin B-12) [Vitamin B12] 5,000 mcg PO DAILY 10/08/16 [History] Multivitamin [Multivitamins Adult Gummies] 2 tab PO DAILY 10/08/16 [History] Cholecalciferol [Vitamin D3] 10,000 unit PO DAILY 07/15/18 [History] Omeprazole 20 mg PO DAILY PRN 07/15/18 [History] Omeprazole 40 mg PO DAILY #30 capsule. 08/19/18 [Rx] Sucralfate [Carafate] 1 gm PO BID #30 tablet 08/19/18 [Rx] Follow up Appointment(s)/Referral(s): [facility] [[facility]-STAFF] - 08/31/18 Patient Instructions/Handouts: *[facility] - (Anesthesia) Endoscopy Discharge Instructions, Peptic Ulcer (DC), Upper Endoscopy (DC) Activity/Diet/Wound Care/Special Instructions: Repeat colonoscopy in 5 years, 2023 Discharge Disposition: HOME SELF-CARE
== END 2018-08-19 10:34 | disposition home or self-care (01) ==
LOC: ORWHC2ENDO 08:10
PROVIDERS: ATTEND Surgery Plastic and Reconstructive Surgery
DX: Z12.11 Encounter for screening for malignant neoplasm of colon (principal); K57.30 Diverticulosis of large intestine without perforation or abscess without bleeding; K64.0 First degree hemorrhoids; K91.89 Other postprocedural complications and disorders of digestive system; K28.9 Gastrojejunal ulcer, unspecified as acute or chronic, without hemorrhage or perforation; K21.9 Gastro-esophageal reflux disease without esophagitis; Z86.010 Personal history of colon polyps; Z87.19 Personal history of other diseases of the digestive system; I10 Essential (primary) hypertension; G47.33 Obstructive sleep apnea (adult) (pediatric); Z99.89 Dependence on other enabling machines and devices; Z80.0 Family history of malignant neoplasm of digestive organs; Z98.84 Bariatric surgery status; Z79.899 Other long term (current) drug therapy; Z88.1 Allergy status to other antibiotic agents; Z88.8 Allergy status to other drugs, medicaments and biological substances; Z88.0 Allergy status to penicillin
CPT/HCPCS: 43245; J2704; C1726; G0105; 43249

== ENCOUNTER → 2018-08-31 | Outpatient (CLI) | payer OTHER ==
[2018-08-31 17:51] VITALS: BP 113/74; PULSE 67; RESP 16; TEMP 97.4; BMI 30.7
--- NOTE | 2018-08-31 19:16 | P.PN ---
Subjective Progress Note Date: 08/31/18 HPI: She comes in with history of gastric ulcer. She is started on Omeprazole and Carafate. History of passing due to abdominal pain. She has lost 165 pounds. ABDOMEN: Pannus 6 to 7 pounds. Pannus over 7 cm. STUDIES: 1. CT scan - shows internal hernia ASSESSMENT: 1. Gastric ulcer 2. Internal hernia 3. Panniculitis PLAN: 1. Carafate and omeprazole for ulcers 2. Nystatin powder for panniculitis 3. Repeat EGD in 4 weeks 4. May need diagnostic laparoscopy. Objective - Vital Signs Vital signs: Vital Signs Temp 97.4 F L 08/31/18 17:49 Pulse 67 08/31/18 17:49 Resp 16 08/31/18 17:49 BP 113/74 08/31/18 17:49 Pulse Ox Intake & Output 08/31/18 08/31/18 09/01/18 06:59 18:59 06:59 Weight 86.438 kg
== END ==
LOC: BARWHC3 16:38
PROVIDERS: ATTEND Surgery Plastic and Reconstructive Surgery
DX: K25.9 Gastric ulcer, unspecified as acute or chronic, without hemorrhage or perforation (principal); K46.9 Unspecified abdominal hernia without obstruction or gangrene; M79.3 Panniculitis, unspecified; Z79.899 Other long term (current) drug therapy
CPT/HCPCS: 99211

== ENCOUNTER 2018-10-17 06:20 | Day surgery (SDC) | payer OTHER ==
[2018-10-13 11:54] VITALS: BMI 30.4
--- NOTE | 2018-10-16 09:15 | P.GSHP ---
History of Present Illness H&P Date: 10/17/18 CHIEF COMPLAINT: GERD HISTORY OF PRESENT ILLNESS: The patient is a 57-year-old female who presents reports gastroesophageal reflux disease. Upper endoscopy was offered for further evaluation and management. PAST MEDICAL HISTORY: Please see list. PAST SURGICAL HISTORY: Please see list. MEDICATIONS: Please see list. ALLERGIES: Please see list. SOCIAL HISTORY: No illicit drug use FAMILY HISTORY: No reports of Crohn disease or ulcerative colitis. REVIEW OF ORGAN SYSTEMS: CONSTITUTIONAL: No reports of fevers or chills. GI: Denies any blood in stools or constipation. PHYSICAL EXAM: VITAL SIGNS: Stable GENERAL: Well-developed and pleasant in no acute distress. HEENT: No scleral icterus. Extraocular movements grossly intact. Moist buccal mucosa. NECK: Supple without lymphadenopathy. CHEST: Unlabored respirations. Equal bilateral excursions. CARDIOVASCULAR: Regular rate and rhythm. Distal 2+ pulses. ABDOMEN: Soft, nondistended. MUSCULOSKELETAL: No clubbing, cyanosis, or edema. ASSESSMENT: 1. Gastroesophageal reflux disease PLAN: 1. Recommend proceeding with an upper endoscopy Past Medical History Past Medical History: Hypertension, Sleep Apnea/CPAP/BIPAP Additional Past Medical History / Comment(s): STATES HTN RESOLVED WITH WT LOSS (165 #), STOMACH ULCER. History of Any Multi-Drug Resistant Organisms: None Reported Past Surgical History: Bariatric Surgery, Section, Cholecystectomy, Hernia Repair, Hysterectomy Additional Past Surgical History / Comment(s): gastric bypass (2017). PLASTIC SURGERY X5 FOR RIGHT LEG INJURY, COLONOSCOPY,EGD Past Anesthesia/Blood Transfusion Reactions: Postoperative Nausea & Vomiting (PONV) Additional Past Anesthesia/Blood Transfusion Reaction / Comment(s): STATES NAUSEA AND ANXIETY. Smoking Status: Never smoker - Past Family History Mother Family Medical History: Cancer Additional Family Medical History / Comment(s): colon Father Family Medical History: Cancer Medications and Allergies Home Medications Medication Instructions Recorded Confirmed Type Cyanocobalamin (Vitamin B-12) 5,000 mcg PO DAILY 10/08/16 10/13/18 History [Vitamin B12] Multivitamin [Multivitamins Adult 2 tab PO DAILY 10/08/16 10/13/18 History Gummies] Cholecalciferol [Vitamin D3] 10,000 unit PO DAILY 07/15/18 10/13/18 History Omeprazole 20 mg PO BID 07/15/18 10/13/18 History Nystatin 100,000 Unit/gm Powd 1 applic TOPICAL BID PRN 10/13/18 10/13/18 History [Mycostatin Powder] Sucralfate [Carafate] 1 gm PO BID 10/13/18 10/13/18 History Allergies Allergy/AdvReac Type Severity Reaction Status Date / Time NSAIDS (Non-Steroidal Allergy can not Verified 10/13/18 11:27 Anti-Inflamma take due to gastric bypass surgery Penicillins Allergy Unknown Verified 10/13/18 11:27 Childhood ciprofloxacin [From Cipro] AdvReac Unknown Verified 10/13/18 11:27
[~2018-10-17 06:20] MED LIST changes: +LIDOCAINE 1% 20 ML VIAL (10MG/ML) FOR IV START INTRADERMA PRN
[2018-10-17 06:43] VITALS: RESP 16; TEMP 98
[2018-10-17] MEDS ORDERED: PROPOFOL 10 MG/ML 20 ML VIAL IV ONE (07:07)
[2018-10-17] MEDS ORDERED: fentaNYL (PF) 50 MCG/ML 2 ML AMP ONE (07:07)
[2018-10-17] MEDS ORDERED: MIDAZOLAM 2 MG/2 ML VIAL ONE (07:07)
[2018-10-17] MEDS ORDERED: LIDOCAINE 1% INJ 10MG/ML (20 ML MDV) ONE (07:07)
--- NOTE | 2018-10-17 07:36 | P.PCN ---
Date of Procedure: 10/17/18 Description of Procedure: PREOPERATIVE DIAGNOSIS: Gastrojejunal stricture with chronic ulcer Dysphagia Chronic gastric ulcers POSTOPERATIVE DIAGNOSIS: Dysphagia. Gastrojejunal stricture with chronic ulcer without perforation Gastric stenosis OPERATION: Esophagogastrojejunoscopy with balloon dilatation from 12 to 19 mm. SURGEON: Concha Ruff MD ANESTHESIA: MAC. INDICATIONS: The patient is a 57-year-old female who presents with a history of dysphagia, including . Benefits and risks of the procedure were described. Informed consent was obtained. DESCRIPTION: The patient was brought into the endoscopy suite and laid in the left lateral decubitus position. After a timeout was confirmed, the procedure was initiated. An Olympus gastroscope was passed along the posterior oropharynx down to the distal esophagus where the squamocolumnar junction was unremarkable. The gastric pouch was entered. A gastrojejunal stricture of 12 mm was found as the adult gastroscope was 9.5 mm in size. A [employer] balloon dilator was placed through the scope. Final insufflation up to 12 then 19 mm was performed with a total of 2 minutes. The scope was advanced up to 60 cm from the incisors into the Maya limb. The mucosa of the gastrojejunal anastomosis was intact. However resolving chronic gastrojejunal marginal ulcer was encountered. No full- thickness injury was encountered. The GI tract was desufflated. The patient tolerated the procedure well. FINDINGS: Squamocolumnar junction unremarkable at 37 cm. Stricture of approximately 12 mm encountered. Chronic gastrojejunal ulceration encountered almost resolved Successful balloon dilatation to 19 mm. RECOMMENDATIONS: Liquid diet. Upper endoscopy as needed. Plan - Discharge Summary Discharge Rx Participant: No New Discharge Prescriptions: No Action Multivitamin [Multivitamins Adult Gummies] 2 tab PO DAILY Cyanocobalamin (Vitamin B-12) [Vitamin B12] 5,000 mcg PO DAILY Cholecalciferol [Vitamin D3] 10,000 unit PO DAILY Omeprazole 20 mg PO BID Sucralfate [Carafate] 1 gm PO BID Nystatin 100,000 Unit/gm Powd [Mycostatin Powder] 1 applic TOPICAL BID PRN PRN Reason: Rash Discharge Medication List Cyanocobalamin (Vitamin B-12) [Vitamin B12] 5,000 mcg PO DAILY 10/08/16 [History] Multivitamin [Multivitamins Adult Gummies] 2 tab PO DAILY 10/08/16 [History] Cholecalciferol [Vitamin D3] 10,000 unit PO DAILY 07/15/18 [History] Omeprazole 20 mg PO BID 07/15/18 [History] Nystatin 100,000 Unit/gm Powd [Mycostatin Powder] 1 applic TOPICAL BID PRN 10/13/18 [History] Sucralfate [Carafate] 1 gm PO BID 10/13/18 [History] Follow up Appointment(s)/Referral(s): [facility],. [[facility]-STAFF] - 11/02/18 Patient Instructions/Handouts: Esophageal Dilation (IP) Activity/Diet/Wound Care/Special Instructions: Liquid diet today. Regular diet tomorrow Discharge Disposition: HOME SELF-CARE
[2018-10-17 07:55] VITALS: BP 129/80; PULSE 64
== END 2018-10-17 08:16 | disposition home or self-care (01) ==
LOC: ORWHC2ENDO 06:20
PROVIDERS: ATTEND Surgery Plastic and Reconstructive Surgery
DX: K31.89 Other diseases of stomach and duodenum (principal); K25.7 Chronic gastric ulcer without hemorrhage or perforation; K21.9 Gastro-esophageal reflux disease without esophagitis; I10 Essential (primary) hypertension; Z99.89 Dependence on other enabling machines and devices; Z98.84 Bariatric surgery status; Z90.49 Acquired absence of other specified parts of digestive tract; Z79.899 Other long term (current) drug therapy; Z88.6 Allergy status to analgesic agent; Z88.0 Allergy status to penicillin; Z88.1 Allergy status to other antibiotic agents; Z86.73 Personal history of transient ischemic attack (TIA), and cerebral infarction without residual deficits
CPT/HCPCS: 43245; J2250; J2001; J3010; J2704; C1726 ×2

== ENCOUNTER → 2018-11-05 | Outpatient (CLI) | payer OTHER ==
[2018-11-05 11:55] LABS: Basophils # (A) 0.1 k/uL (0-0.2); Basophils % (A) 1 %; Eosinophils # (A) 0.2 k/uL (0-0.7); Eosinophils % (A) 3 %; HCT 40.4 % (34.0-46.0); HGB 12.5 gm/dL (11.4-16.0); Lymphocytes # (A) 1.8 k/uL (1.0-4.8); Lymphocytes % (A) 27 %; MCH 28.1 pg (25.0-35.0); MCHC 30.9 g/dL (31.0-37.0); MCV 91.2 fL (80.0-100.0); Mean Platelet Volume 7.2; Monocytes # (A) 0.4 k/uL (0-1.0); Monocytes % (A) 6 %; Neutrophils # (A) 4.2 k/uL (1.3-7.7); Neutrophils % (A) 63 %; Platelet Count 316 k/uL (150-450); RBC 4.43 m/uL (3.80-5.40); RDW 13.6 % (11.5-15.5); WBC 6.7 k/uL (3.8-10.6)
[2018-11-05 12:05] LABS: ALT 17 U/L (9-52); AST 21 U/L (14-36); Albumin 3.9 g/dL (3.5-5.0); Alkaline Phosphatase 93 U/L (38-126); Anion Gap 8 mmol/L; Blood Urea Nitrogen 11 mg/dL (7-17); Calcium 9.4 mg/dL (8.4-10.2); Carbon Dioxide 27 mmol/L (22-30); Chloride 109 mmol/L (98-107); Glucose 107 mg/dL (74-99); Potassium 4.2 mmol/L (3.5-5.1); Sodium 144 mmol/L (137-145); Total Bilirubin 0.4 mg/dL (0.2-1.3); Total Protein 7.3 g/dL (6.3-8.2)
== END | disposition home or self-care (01) ==
LOC: LABPAT 10:43
PROVIDERS: ATTEND Surgery Plastic and Reconstructive Surgery
DX: Z01.818 Encounter for other preprocedural examination (principal); Z01.812 Encounter for preprocedural laboratory examination; R94.31 Abnormal electrocardiogram [ECG] [EKG]
CPT/HCPCS: 36415; 80053; 85025; 93005

== ENCOUNTER 2018-12-08 06:23 | Day surgery (SDC) | payer OTHER ==
[2018-12-05 08:46] VITALS: BMI 30.3
[~2018-12-08 06:23] MED LIST changes: +DEXAMETHASONE SOD PHOSPHATE 10 MG/ML 1 ML VIAL IV ONE; +HYDROmorphone 0.5 MG/0.5 ML SYRINGE IVP PRN; +ONDANSETRON 4 MG/2 ML VIAL IVP ONE; +ONDANSETRON 4 MG/2 ML VIAL IVP PRN; +Pre Op ABX Message 1 EACH MISC MISCELLANE ONE
[2018-12-08] MEDS ORDERED: ceFAZolin IN SWFI 2 GM/20 ML SYRINGE IVP ONE (07:22)
--- NOTE | 2018-12-08 07:22 | P.GSHP ---
History of Present Illness H&P Date: 12/08/18 CHIEF COMPLAINT: History of intra-abdominal adhesions HISTORY OF PRESENT ILLNESS: The patient is a 58-year-old female who presents with history of intra-abdominal adhesions from multiple prior surgeries including increasing abdominal pain. She now presents for diagnostic laparoscopy including lysis of adhesions. PAST MEDICAL HISTORY: Please see list. PAST SURGICAL HISTORY: Please see list. MEDICATIONS: Please see list. ALLERGIES: Please see list. SOCIAL HISTORY: No illicit drug use FAMILY HISTORY: No reports of Crohn disease or ulcerative colitis. REVIEW OF ORGAN SYSTEMS: CONSTITUTIONAL: No reports of fevers or chills. GI: Denies any blood in stools or constipation. PHYSICAL EXAM: VITAL SIGNS: Stable GENERAL: Well-developed pleasant and in no acute distress. HEENT: No scleral icterus. Extraocular movements grossly intact. Moist buccal mucosa. NECK: Supple without lymphadenopathy. CHEST: Unlabored respirations. Equal bilateral excursions. CARDIOVASCULAR: Regular rate and rhythm. Distal 2+ pulses. ABDOMEN: Soft, diffuse abdominal tenderness. No peritonitis. MUSCULOSKELETAL: No clubbing, cyanosis, or edema. ASSESSMENT: 1. Diffuse abdominal pain. 2. History of multiple abdominal surgeries. 3. Intra-abdominal adhesions. PLAN: 1. Robotic lysis of adhesions were described in detail including risk of injury to the intestine, need for further surgery, and open technique. 2. DVT prophylaxis. 3. Antibiotic prophylaxis. 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 PLASTIC SURGERY X5 FOR RIGHT LEG INJURY, COLONOSCOPY,EGD Past Anesthesia/Blood Transfusion Reactions: Postoperative Nausea & Vomiting (PONV) Additional Past Anesthesia/Blood Transfusion Reaction / Comment(s): STATES NAUSEA AND ANXIETY. Smoking Status: Never smoker - Past Family History Mother Family Medical History: Cancer Additional Family Medical History / Comment(s): colon Father Family Medical History: Cancer Medications and Allergies Home Medications Medication Instructions Recorded Confirmed Type Cyanocobalamin (Vitamin B-12) 5,000 mcg PO DAILY 10/08/16 12/08/18 History [Vitamin B12] Multivitamin [Multivitamins Adult 2 tab PO DAILY 10/08/16 12/08/18 History Gummies] Cholecalciferol [Vitamin D3] 10,000 unit PO DAILY 07/15/18 12/08/18 History Omeprazole 20 mg PO BID 07/15/18 12/08/18 History Nystatin 100,000 Unit/gm Powd 1 applic TOPICAL BID PRN 10/13/18 12/08/18 History [Mycostatin Powder] Sucralfate [Carafate] 1 gm PO BID 10/13/18 12/08/18 History Allergies Allergy/AdvReac Type Severity Reaction Status Date / Time NSAIDS (Non-Steroidal Allergy can not Verified 12/08/18 06:47 Anti-Inflamma take due to gastric bypass surgery Penicillins Allergy Unknown Verified 12/08/18 06:47 Childhood ciprofloxacin [From Cipro] AdvReac LOST SENSE Verified 12/08/18 06:47 OF TASTE FOR 6 MONTHS Surgical - Exam Vital Signs Temp Pulse Resp BP Pulse Ox 97.3 F L 62 18 125/75 98 12/08/18 06:52 12/08/18 06:52 12/08/18 06:52 12/08/18 06:52 12/08/18 06:52
[2018-12-08] MEDS ORDERED: HEPARIN SODIUM,PORCINE 5,000 UNIT/ML 1 ML VIAL SQ ONE (07:24)
[2018-12-08] MEDS ORDERED: LIDOCAINE 1% INJ 10MG/ML (20 ML MDV) ONE (07:37)
[2018-12-08] MEDS ORDERED: ROCURONIUM BROMIDE 10 MG/ML 10 ML VIAL IV ONE (07:37)
[2018-12-08] MEDS ORDERED: GLYCOPYRROLATE 0.2 MG/ML 2 ML VIAL ONE (07:37)
[2018-12-08] MEDS ORDERED: fentaNYL (PF) 50 MCG/ML 2 ML AMP ONE (07:37)
[2018-12-08] MEDS ORDERED: PROPOFOL 10 MG/ML 20 ML VIAL IV ONE (07:37)
[2018-12-08] MEDS ORDERED: NEOSTIGMINE 1 MG/ML 10 ML VIAL ONE (07:37)
[2018-12-08] MEDS ORDERED: MIDAZOLAM 2 MG/2 ML VIAL ONE (07:37)
[2018-12-08 07:45] LABS: Basophils % (A) 1 %; Eosinophils # (A) 0.2 k/uL (0-0.7); Eosinophils % (A) 4 %; HCT 38.4 % (34.0-46.0); Lymphocytes % (A) 32 %; MCH 28.7 pg (25.0-35.0); MCHC 31.2 g/dL (31.0-37.0); MCV 91.8 fL (80.0-100.0); Mean Platelet Volume 6.9; Monocytes # (A) 0.4 k/uL (0-1.0); Monocytes % (A) 6 %; Neutrophils # (A) 3.5 k/uL (1.3-7.7); Neutrophils % (A) 55 %; Platelet Count 353 k/uL (150-450); RBC 4.19 m/uL (3.80-5.40); RDW 13.3 % (11.5-15.5); WBC 6.3 k/uL (3.8-10.6)
[2018-12-08 07:59] LABS: ALT 26 U/L (9-52); AST 31 U/L (14-36); African American GFR (CKD) >90 (>60 ml/min/1.73 sqM); Alkaline Phosphatase 88 U/L (38-126); Anion Gap 7 mmol/L; Blood Urea Nitrogen 16 mg/dL (7-17); Calcium 9.1 mg/dL (8.4-10.2); Carbon Dioxide 29 mmol/L (22-30); Chloride 107 mmol/L (98-107); Glucose 92 mg/dL (74-99); Potassium 4.2 mmol/L (3.5-5.1); Sodium 143 mmol/L (137-145); Total Bilirubin 0.6 mg/dL (0.2-1.3); Total Protein 7.6 g/dL (6.3-8.2)
[2018-12-08] MEDS ORDERED: LIDOCAINE 1%-EPI 1:100,000 20 ML VIAL SQ ONE (08:10)
[2018-12-08] MEDS ORDERED: ACETAMINOPHEN TAB 500 MG TAB PO PRN (09:03)
--- NOTE | 2018-12-08 09:12 | P.OP ---
Date of Procedure: 12/08/18 Description of Procedure: SURGEON: BARBRA HAQ MD PREOPERATIVE DIAGNOSES: 1. History of small bowel obstruction 2. Abnormal computed tomography scan for internal hernia 3. Upper quadrant abdominal pain 4. History of gastric bypass 5. Epigastric abdominal pain 6. History of gastrojejunal ulcers POSTOPERATIVE DIAGNOSES: 1. History of small bowel obstruction 2. Abnormal computed tomography scan for internal hernia 3. Upper quadrant abdominal pain 4. History of gastric bypass 5. Epigastric abdominal pain 6. History of gastrojejunal ulcers OPERATION: 1. Robotic-assisted da Michael Xi laparoscopic with lysis of adhesions, 20 minutes. ESTIMATED BLOOD LOSS: 5 mL. SPECIMENS REMOVED: None. COMPLICATIONS: None. OPERATIVE FINDINGS: 1. No ventral hernias identified. 2. Adhesions along the epigastrium, left upper quarant and right upper quadrant 3. Antegastric antecolic Maya-en-Y gastric bypass with 150 cm Maya limb 4. Complete scarring of Mora defect and jejunojejunostomy mesenteric defect 5. Adhesion of gastrojejunal anastomosis to the anterior abdominal wall released 6. Normal terminal ileum and cecum unremarkable. INDICATIONS: The patient is a 58-year-old female who presents with epigastric abdominal pain including left upper quadrant abdominal pain. Surgical intervention with diagnostic laparoscopy, lysis of adhesions were described. Informed consent was obtained. Robotic assisted laparoscopic approach was described. Benefits and risks of the procedure including but not limited to bleeding, infection, injury to the biliary tree was described. Informed consent was obtained. DESCRIPTION OF PROCEDURE: Patient was brought to the operating room, placed in supine position. After general induction, the abdomen had been prepped and draped in standard sterile fashion. The robotic da Michael XI system was primed. After a timeout protocol was performed, the patient had been prepped and draped in standard sterile fashion. The robot was docked along the right lateral abdomen. The patient was repositioned in with right side up. Please note prior to docking of the robot; however, a 5 mm 0 degrees laparoscopic trocar entry was performed along the left upper quadrant. Next, three 8 mm robotic ports were placed along the right lateral abdominal wall. The camera 8-mm port was maintained along mid-lateral abdomen. Please note that the ports were placed at least 10 to 15 cm away from the target anatomy. The patient was placed right side up 6. Instruments including graspers and vessel sealer were interchanged by the surgical dental assistant. I had sat at the console. Multiple focal points involving the left upper quadrant and right upper quadrant including the lower abdominal was identified and addressed using vessel sealer. No evidence of incisional hernia was identified. The rest of the abdomen was unremarkable for small bowel pathology. The small bowel from the maya limb to distal ileum was inspected. No internal hernias were identified. Complete scarring of Mora defect and jejunojejunostomy mesenteric defect was confirmed. Adhesion of gastrojejunal anastomosis to the anterior abdominal wall was released. The terminal ileum and cecum was unremarkable. Extensive lysis of adhesions over 20 minutes performed. No evidence of small bowel obstruction was found. The robot was undocked. All pneumoperitoneum instruments were evacuated from the abdominal cavity. The incisions were reapproximated using 4-0 Monocryl in an interrupted subcuticular fashion. Please note along the trocar sites, local anesthetic was placed as a field block prior to insertion of all instruments. Exofin was applied to the skin. At the end of the procedure needle, sponge, and instrument count had been verified correct by the surgical dental assistant. The patient was transferred to postanesthesia care unit in stable condition. Console time 21 minutes Plan - Discharge Summary Discharge Rx Participant: No New Discharge Prescriptions: New Bisacodyl [Dulcolax] 5 mg PO DAILY PRN #10 tablet. PRN Reason: Constipation Simethicone 40 mg/0.6 ml Drops [Mylicon Drops] 40 mg PO PCHS PRN #30 ml PRN Reason: Gas Acetaminophen [Tylenol] 325 mg PO Q4H #30 tab No Action Multivitamin [Multivitamins Adult Gummies] 2 tab PO DAILY Cyanocobalamin (Vitamin B-12) [Vitamin B12] 5,000 mcg PO DAILY Cholecalciferol [Vitamin D3] 10,000 unit PO DAILY Omeprazole 20 mg PO BID Sucralfate [Carafate] 1 gm PO BID Nystatin 100,000 Unit/gm Powd [Mycostatin Powder] 1 applic TOPICAL BID PRN PRN Reason: Rash Discharge Medication List Cyanocobalamin (Vitamin B-12) [Vitamin B12] 5,000 mcg PO DAILY 10/08/16 [History] Multivitamin [Multivitamins Adult Gummies] 2 tab PO DAILY 10/08/16 [History] Cholecalciferol [Vitamin D3] 10,000 unit PO DAILY 07/15/18 [History] Omeprazole 20 mg PO BID 07/15/18 [History] Nystatin 100,000 Unit/gm Powd [Mycostatin Powder] 1 applic TOPICAL BID PRN 10/13/18 [History] Sucralfate [Carafate] 1 gm PO BID 10/13/18 [History] Acetaminophen [Tylenol] 325 mg PO Q4H #30 tab 12/08/18 [Rx] Bisacodyl [Dulcolax] 5 mg PO DAILY PRN #10 tablet. 12/08/18 [Rx] Simethicone 40 mg/0.6 ml Drops [Mylicon Drops] 40 mg PO PCHS PRN #30 ml 12/08/18 [Rx] Follow up Appointment(s)/Referral(s): [facility] [[facility]] - 12/21/18 Patient Instructions/Handouts: Lysis of Abdominal Adhesions (DC) Activity/Diet/Wound Care/Special Instructions: Diet as tolerated. Use tylenol as needed for pain. Use cold compress along incisions. May shower. No bathtub soaks or lifting over 10 pounds until December 17. Discharge Disposition: HOME SELF-CARE
[2018-12-08 09:29] VITALS: TEMP 97.5
[2018-12-08] MEDS ORDERED: LACTATED RINGERS 1,000 ML IV ONE ×2 (09:30)
[2018-12-08 11:00] VITALS: RESP 18
[2018-12-08 11:23] VITALS: BP 105/64; PULSE 70
== END 2018-12-08 11:41 | disposition home or self-care (01) ==
LOC: OR 06:23
PROVIDERS: ATTEND Surgery Plastic and Reconstructive Surgery
DX: K66.0 Peritoneal adhesions (postprocedural) (postinfection) (principal); K21.9 Gastro-esophageal reflux disease without esophagitis; Z86.73 Personal history of transient ischemic attack (TIA), and cerebral infarction without residual deficits; Z87.11 Personal history of peptic ulcer disease; Z79.899 Other long term (current) drug therapy; Z88.0 Allergy status to penicillin; Z88.1 Allergy status to other antibiotic agents; Z88.6 Allergy status to analgesic agent; Z98.84 Bariatric surgery status; Z87.19 Personal history of other diseases of the digestive system; Z90.49 Acquired absence of other specified parts of digestive tract; Z90.710 Acquired absence of both cervix and uterus; Z80.9 Family history of malignant neoplasm, unspecified
CPT/HCPCS: 44180; S2900; 80053; 85025

== ENCOUNTER → 2018-12-21 | Outpatient (CLI) | payer OTHER ==
[2018-12-21 13:56] VITALS: BP 122/73; PULSE 67; TEMP 98.2; BMI 31.1
--- NOTE | 2018-12-21 14:15 | P.PN ---
Subjective Progress Note Date: 12/21/18 DATE OF SERVICE: 12/21/2018 CHIEF COMPLAINT: Morbid obesity HISTORY OF PRESENT ILLNESS: Henny Gutierrez is a 57-year-old female who had a gastric bypass from [address] Domingo Spicer who retired. She presented with moderate abdominal pain and finding of internal hernia. She is status post lysis of adhesions 12/08/2018. She is 2 weeks out. She is doing very well. She reports resolved abdominal pain. She is doing better. She had lysis of adhesions and is tolerating diet. At height of 5 feet 6 inches, her ideal body weight is 154 pounds. She comes in 193 pounds from 190 pounds, 4 months ago. She has gained 3 pounds in 4 months. Her highest weight was 350 pounds. Her body mass index highest was 56.6. Today her BMI is 31.2. She is 31 pounds overweight. She has lost 157 pounds lifetime. Percent excess weight loss is 80 %. PHYSICAL EXAM: VITAL SIGNS: Height 5 foot 6 inches, weight 193 pounds. BMI 31.2 Vital Signs Temp 98.2 F 12/21/18 13:53 Pulse 67 12/21/18 13:53 Resp BP 122/73 12/21/18 13:53 Pulse Ox GENERAL: Well-developed in no acute distress. HEENT: No scleral icterus. Extraocular movements grossly intact. Hears conversational speech. No nasal drainage. NECK: Supple without lymphadenopathy. CHEST: Nonlabored respirations with equal bilateral excursions. CARDIOVASCULAR: Regular rate and regular rhythm. Distal 2+ pulses. ABDOMEN: Soft and nontender. Incisions intact without cellulitis. Has panniculitis MUSCULOSKELETAL: No clubbing, cyanosis. Gross strength 5/5 distal lower extremities. NEURO: No focal or lateralizing signs. Cranial nerves 2 through 12 grossly within normal limits. PSYCH: Appropriate affect. Alert and oriented to person, place and time. SKIN: Good skin turgor. Well perfused. ASSESSMENT: 1. Morbid obesity due to excess calories 2. Body mass index of 56.6, initial down to 31.2 3. Hypertensive heart disease. 4. Generalized anxiety 5. History of gastric bypass with abdominal pain. 6. Vitamin D deficiency. 7. Gastric ulcers, recurrent 8. Family history of colon cancer. 9. Internal hernia 10. Panniculitis 11. Zinc deficiency 12. Iron deficiency anemia 13. Peritoneal adhesions 14. Panniculitis PLAN: 1. She has troubles with her pannus and is seeking panniculectomy in the future. 2. Panniculectomy packet given. 3. She may return to work Objective - Vital Signs Vital signs: Vital Signs Temp 98.2 F 12/21/18 13:53 Pulse 67 12/21/18 13:53 Resp BP 122/73 12/21/18 13:53 Pulse Ox Intake & Output 12/20/18 12/21/18 12/21/18 18:59 06:59 18:59 Weight 87.543 kg
--- NOTE | 2018-12-21 14:17 | P.PN ---
Progress Note - Text Progress Note Date: 12/21/18 To whom it may concern: Henny Gutierrez is under my surgical care. She may return to work without restrictions on December 26. Regards, Concha Ruff MD, FACS, [facility]
== END | disposition home or self-care (01) ==
LOC: BARWHC3 13:06
PROVIDERS: ATTEND Surgery Plastic and Reconstructive Surgery
DX: E66.01 Morbid (severe) obesity due to excess calories (principal); I11.9 Hypertensive heart disease without heart failure; F41.1 Generalized anxiety disorder; E55.9 Vitamin D deficiency, unspecified; K25.9 Gastric ulcer, unspecified as acute or chronic, without hemorrhage or perforation; K46.9 Unspecified abdominal hernia without obstruction or gangrene; M79.3 Panniculitis, unspecified; D50.9 Iron deficiency anemia, unspecified; K66.0 Peritoneal adhesions (postprocedural) (postinfection); E60 Dietary zinc deficiency; Z68.31 Body mass index [BMI] 31.0-31.9, adult; Z80.0 Family history of malignant neoplasm of digestive organs; Z98.84 Bariatric surgery status
CPT/HCPCS: 99211

== ENCOUNTER → 2018-12-27 | Outpatient (CLI) | payer OTHER ==
--- NOTE | 2018-12-28 11:04 | MM ---
Reason for exam: screening (asymptomatic). Last mammogram was performed 1 year and 1 month ago. History: Patient is postmenopausal. Family history of breast cancer in maternal aunt at age 50. Took hormonal contraceptives for 2 years beginning at age 21. Physical Findings: A clinical breast exam by your physician is recommended on an annual basis and results should be correlated with mammographic findings. MG 3D Screening Mammo W/Cad Bilateral CC and MLO view(s) were taken. Prior study comparison: November 30, 2017, bilateral MG 3d screening mammo w/cad. November 13, 2016, bilateral MG 3d screening mammo w/cad. There are scattered fibroglandular densities. There is no discrete abnormality. No significant changes when compared with prior studies. ASSESSMENT: Negative, BI-RAD 1 RECOMMENDATION: Routine screening mammogram of both breasts in 1 year.
== END | disposition home or self-care (01) ==
LOC: RADMAMWWP 07:06
PROVIDERS: ATTEND Obstetrics & Gynecology
DX: Z12.31 Encounter for screening mammogram for malignant neoplasm of breast (principal)
CPT/HCPCS: 77063; 77067

== ENCOUNTER → 2020-04-25 | Outpatient (CLI) | payer OTHER ==
[2020-04-25 09:30] LABS: Basophils % (A) 0 %; Eosinophils # (A) 0.2 k/uL (0-0.7); Eosinophils % (A) 2 %; HCT 40.5 % (34.0-46.0); HGB 12.7 gm/dL (11.4-16.0); Lymphocytes # (A) 1.8 k/uL (1.0-4.8); Lymphocytes % (A) 26 %; MCH 28.2 pg (25.0-35.0); MCHC 31.4 g/dL (31.0-37.0); MCV 89.8 fL (80.0-100.0); Mean Platelet Volume 7.3; Monocytes # (A) 0.3 k/uL (0-1.0); Monocytes % (A) 5 %; Neutrophils # (A) 4.5 k/uL (1.3-7.7); Neutrophils % (A) 65 %; Platelet Count 343 k/uL (150-450); RBC 4.51 m/uL (3.80-5.40); RDW 12.8 % (11.5-15.5); WBC 6.9 k/uL (3.8-10.6)
[2020-04-25 14:53] LABS: % Iron Saturation 12.36 (12.00-45.00); African American GFR (CKD) 111.5 (60.0-200.0); Albumin 3.8 g/dL (3.80-4.90); Albumin/Globulin Ratio 1.31 (1.60-3.17); BUN/Creat Ratio 18.57 Ratio (12.00-20.00); Calcium 9.1 mg/dL (8.7-10.3); Chol/HDL Ratio 2.63; Globulin 2.9 g/dL (1.6-3.3); LDL Cholesterol,Calculated 68.2 mg/dL (0.0-131.0); Magnesium 1.7 mg/dL (1.5-2.4); Non-African American GFR(CKD) 96.2 (60.0-200.0); Phosphorus 4.1 mg/dL (2.4-5.1); Total Bilirubin 0.3 mg/dL (0.2-1.2); Total Protein 6.7 g/dL (6.2-8.2); Uric Acid 4.7 mg/dL (2.9-7.7); VLDL Calculation 16.8 mg/dL (5.00-40.00)
[2020-04-25 15:09] LABS: Ferritin 25.2 ng/mL (10.0-291.0)
[2020-04-25 15:16] LABS: Folate, Serum 12.4 ng/mL
[2020-04-25 16:34] LABS: Hemoglobin A1C 5.3 % (4.0-6.0)
[2020-04-26 14:35] LABS: Zinc, Serum 45 ug/dL (60-130)
== END | disposition home or self-care (01) ==
LOC: LABWHC1 08:35
PROVIDERS: ATTEND Physician Assistant Medical
DX: Z00.00 Encounter for general adult medical examination without abnormal findings (principal); Z13.220 Encounter for screening for lipoid disorders; Z13.228 Encounter for screening for other metabolic disorders; Z98.84 Bariatric surgery status
CPT/HCPCS: 36415; 80053; 80061; 82306; 82525; 82607; 82728; 82746; 83036; 83540; 83550; 83735; 83970; 84100; 84207; 84255; 84443; 84550; 84590; 84630; 85025

== ENCOUNTER → 2020-05-08 | Outpatient (CLI) | payer OTHER ==
[2020-05-08 15:30] VITALS: BP 110/70; PULSE 67; RESP 18; TEMP 98.1; BMI 33.5
--- NOTE | 2020-05-08 15:56 | P.PN ---
Subjective Progress Note Date: 05/08/20 DATE OF SERVICE: 05/08/2020 CHIEF COMPLAINT: Status post gastric bypass HISTORY OF PRESENT ILLNESS: Henny Gutierrez is a 59-year-old female status post gastric bypass from 2017. She is 3 years out. She was last seen over 1.5 years ago. She had scar tissue removal in the past. She is looking into skin removal surgery from panniculitis. She has gained 15 pounds. She is a patient of Dr. Spicer. She has history of dilation. She reports eating too fast. She has lost 150 pounds in the past. She comes in with weight gain and panniculitis. At height of 5 feet 6 inches, her ideal body weight is 154 pounds. She comes in 208 pounds from 193 pounds, 1 year ago. She has gained 15 pounds in 1 year. Her highest weight was 350 pounds. Her body mass index highest was 56.6. Today her BMI is 33.6. She is 54 pounds overweight. She has lost 142 pounds lifetime. Percent excess weight loss is 73 %. PAST MEDICAL HISTORY: 1. Morbid obesity due to excess calories 2. Body mass index of 56.6, initial 3. Hypertensive heart disease. 4. Generalized anxiety PAST SURGICAL HISTORY: 1. Gastric bypass 2. 3. Hysterectomy 4. Cholecystectomy 5. Hernia repair HOME MEDICATIONS: ALLERGIES: Home Medications Medication Instructions Recorded Confirmed Type Cyanocobalamin (Vitamin B-12) 5,000 mcg PO DAILY 10/08/16 04/21/18 History [Vitamin B12] Multivitamin [Multivitamins Adult 1 tab PO DAILY 10/08/16 04/21/18 History Gummies] Allergies Allergy/AdvReac Type Severity Reaction Status Date / Time ciprofloxacin [From Cipro] Allergy Unknown Verified 12/26/17 05:51 Penicillins Allergy Unknown Verified 12/26/17 05:51 SOCIAL HISTORY: No past tobacco use. FAMILY HISTORY: No family history of ulcerative colitis disease or Crohn's disease. Family history of morbid obesity. No lupus in the family. No reports of stomach or esophageal cancer. REVIEW OF ORGAN SYSTEMS: CONSTITUTIONAL: At height of 5 feet 6 inches, her ideal body weight is 154 pounds. Her highest weight was 350 pounds. Her body mass index highest was 56.6. HEENT: Denies any active troubles with vision or hearing. No troubles with swallowing. ENDOCRINE: No diabetes. No hypothyroidism. CARDIOVASCULAR: No reports of palpitations or heart attacks or chest pain. RESPIRATORY: Has daytime somnolence now resolved. No asthma. GI: Denies any bright red blood per rectum. No diarrhea. MUSCULOSKELETAL: Has lower back pain and joint pain. Has osteoarthritis of the knees. NEURO: No headaches. No seizure disorders. PSYCH: No depression. No suicidal ideation. RHEUMATOLOGIC: No lupus. No rheumatoid arthritis. HEMATOLOGIC: Denies any abnormal bleeding or bruising. No personal history of DVTs. SKIN: No rash. No skin cancer. PHYSICAL EXAM: VITAL SIGNS: Height 5 foot 6 inches, weight 208 pounds. BMI 33.6 Vital Signs Temp 98.1 F 05/08/20 15:27 Pulse 67 05/08/20 15:27 Resp 18 05/08/20 15:27 BP 110/70 05/08/20 15:27 Pulse Ox GENERAL: Well-developed in no acute distress. HEENT: No scleral icterus. Extraocular movements grossly intact. Hears conversational speech. No nasal drainage. NECK: Supple without lymphadenopathy. CHEST: Nonlabored respirations with equal bilateral excursions. CARDIOVASCULAR: Regular rate and regular rhythm. Distal 2+ pulses. ABDOMEN: Soft and nontender. Incisions intact without cellulitis. Has panniculitis MUSCULOSKELETAL: No clubbing, cyanosis. NEURO: No focal or lateralizing signs. Cranial nerves 2 through 12 grossly within normal limits. PSYCH: Appropriate affect. Alert and oriented to person, place and time. SKIN: Good skin turgor. Well perfused. LABS: Reviewed. Iron is low. Vitamin D is low. PTH is elevated. Zinc is low. ASSESSMENT: 1. Morbid obesity due to excess calories 2. Body mass index of 56.6, initial down to 33.6 3. Hypertensive heart disease. 4. Generalized anxiety 5. History of gastric bypass with abdominal pain. 6. Vitamin D deficiency. 7. Gastric ulcers, recurrent 8. Family history of colon cancer. 9. Internal hernia 10. Panniculitis 11. Zinc deficiency 12. Iron deficiency anemia 13. Peritoneal adhesions 14. Panniculitis PLAN: 1. Recommend EGD for occasional dysphagia Objective - Vital Signs Vital signs: Vital Signs Temp 98.1 F 05/08/20 15:27 Pulse 67 05/08/20 15:27 Resp 18 05/08/20 15:27 BP 110/70 05/08/20 15:27 Pulse Ox Intake & Output 05/07/20 05/08/20 05/08/20 18:59 06:59 18:59 Weight 94.347 kg
== END | disposition home or self-care (01) ==
LOC: BARWHC3 14:47
PROVIDERS: ATTEND Surgery Plastic and Reconstructive Surgery
DX: E66.01 Morbid (severe) obesity due to excess calories (principal); I11.9 Hypertensive heart disease without heart failure; F41.9 Anxiety disorder, unspecified; R10.9 Unspecified abdominal pain; E55.9 Vitamin D deficiency, unspecified; K25.9 Gastric ulcer, unspecified as acute or chronic, without hemorrhage or perforation; K46.9 Unspecified abdominal hernia without obstruction or gangrene; M79.3 Panniculitis, unspecified; D50.9 Iron deficiency anemia, unspecified; E60 Dietary zinc deficiency; K66.0 Peritoneal adhesions (postprocedural) (postinfection); Z98.84 Bariatric surgery status; Z80.0 Family history of malignant neoplasm of digestive organs; Z68.33 Body mass index [BMI] 33.0-33.9, adult
CPT/HCPCS: 99211

== ENCOUNTER → 2020-11-22 | Outpatient (CLI) | payer OTHER ==
--- NOTE | 2020-11-27 13:16 | MM ---
Reason for exam: screening (asymptomatic). Last mammogram was performed 1 year and 11 months ago. History: Patient is postmenopausal. Family history of breast cancer in maternal aunt at age 50. Took hormonal contraceptives for 2 years beginning at age 21. Physical Findings: A clinical breast exam by your physician is recommended on an annual basis and results should be correlated with mammographic findings. MG 3D Screening Mammo W/Cad Bilateral CC and MLO view(s) were taken. Prior study comparison: December 27, 2018, bilateral MG 3d screening mammo w/cad. November 30, 2017, bilateral MG 3d screening mammo w/cad. There are scattered fibroglandular densities. ASSESSMENT: Negative, BI-RAD 1 RECOMMENDATION: Routine screening mammogram of both breasts in 1 year.
== END | disposition home or self-care (01) ==
LOC: RADMAMWWP 07:19
PROVIDERS: ATTEND Obstetrics & Gynecology
DX: Z12.31 Encounter for screening mammogram for malignant neoplasm of breast (principal); Z78.0 Asymptomatic menopausal state; Z80.3 Family history of malignant neoplasm of breast
CPT/HCPCS: 77063; 77067

== ENCOUNTER → 2021-02-21 | Outpatient (CLI) | payer OTHER ==
--- NOTE | 2021-02-21 13:19 | BD ---
EXAMINATION TYPE: Axial Bone Density DATE OF EXAM: 02/21/2021 COMPARISON: 08.12.2017 CLINICAL HISTORY: 60 YR OLD FEMALE.....ICD-10 Z13.820 OSTEOPOROSIS SCREENING, N95.1 POST MENOPAUSAL Height: 64.4 Weight: 207 FRAX RISK QUESTIONS: Family History (Parent hip fracture): YES 4. Malnutrition: POSSIBLE MALABSORBTION RISK FACTORS HISTORY OF: Postmenopausal woman: YES, AT ABOUT AGE 49 WITH TOTAL HYST Lost more than 2 inches in height since high school: YES Hyperparathyroidism: NO Adrenal Insufficiency: NO MEDICATIONS: Additional Medications: CALCIUM AND VIT D, Additional History: HX OF GASTRIC BYPASS, 2017 EXAM MEASUREMENTS: Bone mineral densitometry was performed using the [employer] System. Bone mineral density as measured about the Lumbar spine is: ----- L1-L4(G/cm2): 1.082 T Score Values are as follows: ----- L1: -1.1 ----- L2: -0.7 ----- L3: -0.4 ----- L4: -1.2 ----- L1-L4: -0.8 Bone mineral density has: Decreased -15.2% since study of: 08.12.2017 Bone mineral density about the R hip (g/cm2): 0.695 Bone mineral density about the L hip (g/cm2): 0.686 T Score values are as follows: -----R Neck: -2.5 -----L Neck: -1.9 -----R Total: -2.5 -----L Total: -2.6 Bone mineral density has: Decreased -27.0% since study of: 08.12.2017 FRAX%s: THERE IS A 9.8% CHANCE FOR A MAJOR OSTEOPOROTIC FX AND A 1.7% FOR HIP.....PROBABILITY FOR FX IN 10 YRS TIME IMPRESSION: Osteoporosis NOTE: T-SCORE=SD OF THE YOUNG ADULT MEAN.
== END | disposition home or self-care (01) ==
LOC: RADBDWWP 10:35
PROVIDERS: ATTEND Obstetrics & Gynecology
DX: Z13.820 Encounter for screening for osteoporosis (principal); M81.0 Age-related osteoporosis without current pathological fracture; N95.1 Menopausal and female climacteric states
CPT/HCPCS: 77080

== ENCOUNTER → 2021-09-10 | Outpatient (CLI) | payer OTHER ==
[2021-09-10 14:08] LABS: Basophils # (A) 0.06 X 10*3/uL (0.00-0.10); Basophils % (A) 0.8 %; Eosinophils # (A) 0.18 X 10*3/uL (0.04-0.35); Eosinophils % (A) 2.4 %; HCT 39.5 % (37.2-46.3); HGB 11.8 g/dL (12.0-15.0); Immature Grans, Automated 0.3 %; Lymphocytes # (A) 2.36 X 10*3/uL (0.90-5.00); Lymphocytes % (A) 31.8 %; MCH 26.1 pg (27.0-32.0); MCHC 29.9 g/dL (32.0-37.0); MCV 87.4 fL (80.0-97.0); Mean Platelet Volume 10.5 fL (9.5-12.2); Monocytes % (A) 8.1 %; NRBC Per 100 WBC 0 /100 WBCS (0.0-0.0); Neutrophils % (A) 56.6 %; Platelet Count 369 X 10*3/uL (140-440); RBC 4.52 X 10*6/uL (4.10-5.20); RDW 13.6 % (11.5-14.5); WBC 7.42 X 10*3/uL (4.50-10.00)
[2021-09-10 14:45] LABS: % Iron Saturation 7.59 (12.00-45.00); ALT 16 U/L (8-44); AST 15 U/L (13-35); Albumin 4.1 g/dL (3.8-4.9); Albumin/Globulin Ratio 1.05 (1.60-3.17); Alkaline Phosphatase 131 U/L (41-126); BUN/Creat Ratio 21.98 Ratio (12.00-20.00); Blood Urea Nitrogen 16.2 mg/dL (9.0-27.0); Carbon Dioxide 19.5 mmol/L (20.0-27.5); Chloride 104 mmol/L (96-109); Globulin 3.9 g/dL (1.6-3.3); Glucose 90 mg/dL (70-110); Iron 41 ug/dL (50-170); Magnesium 1.9 mg/dL (1.5-2.4); Non-African American GFR(CKD) 89.7 (60.0-200.0); Phosphorus 3.6 mg/dL (2.4-5.1); Potassium 3.8 mmol/L (3.5-5.5); Sodium 139 mmol/L (135-145); Total Iron Binding Capacity 533 ug/dL (228-460); Total Protein 7.9 g/dL (6.2-8.2)
[2021-09-10 15:04] LABS: Chol/HDL Ratio 2.39 Ratio; Ferritin 12.8 ng/mL (10.0-291.0); LDL Cholesterol,Calculated 65.3 mg/dL (0.0-131.0); VLDL Calculation 19.74 mg/dL (5.00-40.00)
[2021-09-11 16:53] LABS: Zinc, Serum 45 ug/dL (60-130)
[2021-09-12 06:15] LABS: Vit B1(Thiamine) 79 ug/L (38-122)
== END | disposition home or self-care (01) ==
LOC: LABWHC1 09:23
PROVIDERS: ATTEND Physician Assistant Medical
DX: Z00.01 Encounter for general adult medical examination with abnormal findings (principal); E55.9 Vitamin D deficiency, unspecified; E61.1 Iron deficiency; M81.0 Age-related osteoporosis without current pathological fracture; Z13.220 Encounter for screening for lipoid disorders; Z13.228 Encounter for screening for other metabolic disorders; Z98.84 Bariatric surgery status
CPT/HCPCS: 36415; 80053; 80061; 82306; 82525; 82607; 82728; 83036; 83540; 83550; 83735; 83970; 84100; 84207; 84255; 84425; 84443; 84550; 84590; 84630; 85025

== ENCOUNTER → 2023-06-03 | Outpatient (CLI) | payer BC ==
--- NOTE | 2023-06-08 19:18 | MM ---
Reason for Exam: Screening (asymptomatic). Last mammogram was performed 2 year(s) and 6 month(s) ago. Patient History: Menarche at age 19. First Full-Term at age 29. Left ovary removed at age 52. Right ovary removed at age 52. Hysterectomy at age 52. Postmenopausal. Hormonal Contraceptives, starting at age 21 for 2 years. Maternal aunt had breast cancer, age 50. Risk Values: Adrienne 5 year model risk: 1.5%. NCI Lifetime model risk: 7.4%. Prior Study Comparison: 11/30/2017 Bilateral Screening Mammogram, [facility]. 12/27/2018 Bilateral Screening Mammogram, [facility]. 11/22/2020 Bilateral Screening Mammogram, [facility]. Tissue Density: There are scattered fibroglandular densities. Findings: Analyzed By CAD. There is no suspicious group of microcalcifications or new suspicious mass in either breast. Overall Assessment: Negative, BI-RAD 1 Management: Screening Mammogram of both breasts in 1 year. . Patient should continue monthly self-breast exams. A clinical breast exam by your physician is recommended on an annual basis. This exam should not preclude additional follow-up of suspicious palpable abnormalities. Note on Adrienne scores and lifetime risk: 1. A Adrienne score greater than 3% is considered moderate risk. If this is the case, consider specialist referral to assess eligibility for a risk reducing agent. 2. If overall lifetime risk for the development of breast cancer is 20% or higher, the patient may qualify for future screening with alternating mammogram and breast MRI. Electronically signed and approved by: Jacki Holloway M.D. Radiologist
== END | disposition home or self-care (01) ==
LOC: RADMAMWWP 07:41
PROVIDERS: ATTEND Family Medicine
DX: Z12.31 Encounter for screening mammogram for malignant neoplasm of breast (principal); Z80.3 Family history of malignant neoplasm of breast; Z78.0 Asymptomatic menopausal state
CPT/HCPCS: 77063; 77067

== ENCOUNTER → 2023-06-11 | Outpatient (CLI) | payer BC ==
[2023-06-11 11:49] LABS: Basophils # (A) 0.04 X 10*3/uL (0.00-0.10); Basophils % (A) 0.7 %; Eosinophils # (A) 0.15 X 10*3/uL (0.04-0.35); Eosinophils % (A) 2.6 %; HCT 33.3 % (37.2-46.3); HGB 9.7 g/dL (12.0-15.0); Lymphocytes % (A) 29.1 %; MCH 24.4 pg (27.0-32.0); MCHC 29.1 g/dL (32.0-37.0); MCV 83.9 FL (80.0-97.0); Mean Platelet Volume 10.5 FL (9.5-12.2); Monocytes % (A) 8.5 %; NRBC Per 100 WBC 0 X 10*3/uL (0.00-0.01); Neutrophils # (A) 3.44 X 10*3/uL (1.80-7.70); Neutrophils % (A) 58.8 %; Platelet Count 448 X 10*3/uL (140-440); RBC 3.97 X 10*6/uL (4.10-5.20); RDW 16.9 % (11.5-14.5); WBC 5.85 X 10*3/uL (4.50-10.00)
[2023-06-11 12:21] LABS: % Iron Saturation 5.12 (12.00-45.00); ALT 13 U/L (8-44); AST 17 U/L (13-35); Albumin 3.2 g/dL (3.8-4.9); Albumin/Globulin Ratio 0.94 Ratio (1.60-3.17); Alkaline Phosphatase 112 U/L (41-126); BUN/Creat Ratio 13.86 Ratio (12.00-20.00); Blood Urea Nitrogen 9.7 mg/dL (9.0-27.0); Calcium 8.9 mg/dL (8.7-10.3); Carbon Dioxide 24.6 mmol/L (21.6-31.8); Chloride 108 mmol/L (96-109); Ferritin 5.9 ng/mL (10.0-291.0); Globulin 3.4 g/dL (1.6-3.3); Glucose 94 mg/dL (70-110); Iron 20 UG/DL (50-170); Potassium 4.6 mmol/L (3.5-5.5); Sodium 141 mmol/L (135-145); Total Bilirubin 0.3 mg/dL (0.3-1.2); Total Iron Binding Capacity 391 UG/DL (228-460); Total Protein 6.6 g/dL (6.2-8.2)
[2023-06-11 13:24] LABS: Reticulocyte % 0.88 % (0.10-1.80)
== END | disposition home or self-care (01) ==
LOC: LABWHC1 07:41
PROVIDERS: ATTEND Family Medicine
DX: E55.9 Vitamin D deficiency, unspecified (principal); D50.9 Iron deficiency anemia, unspecified
CPT/HCPCS: 36415; 80053; 82306; 82728; 83540; 83550; 85025; 85045